=== PATIENT | female | born 1945 | race African-American/Black ===

== ENCOUNTER 2019-02-17 13:12 | Inpatient (IN) | payer MEDICARE, MEDICAID ==
[~2019-02-17 13:12] MED LIST: ISOVUE-370 76%-LOCM 1 ML ONE
[2019-02-17 13:29] LABS: Hemoglobin 12.4 g/dL (12.0-16.0); Mean Corpuscular HGB CONC 32.9 g/dL (32.0-36.0); Mean Corpuscular Hemoglobin 27.5 pg (27.0-31.0); Mean Corpuscular Volume 83.5 fL (78.0-98.0); Mean Platelet Volume 8.4 fL (7.4-10.4); Platelet Count 222 thou/uL (130-400); RBC Distribution Width 12.4 % (11.5-14.5); White Blood Cell (WBC) Count 5.3 thou/uL (4.8-10.8)
--- NOTE | 2019-02-17 13:31 | CT ---
CT OF HEAD NONCONTRAST: INDICATION: Altered mental status. FINDINGS: There is no acute intracranial hemorrhage, mass effect, midline shift, or ventriculomegaly. No acute fluid level of the paranasal sinuses. IMPRESSION: No acute intracranial hemorrhage or mass effect. Notification of results relayed to Dr. Curran, 1331 hours. POS: [facility]
[2019-02-17 13:34] LABS: INR-International Normal Ratio 1.1; PTT 27.7 SEC (22.9-36.1); Prothrombin Time 14.2 SEC (12.0-14.7)
[2019-02-17 13:47] LABS: Lymphocytes 34 % (21-51); MDiff Complete? YES; Monocytes 6 % (0-10); Neutrophil 60 % (42-75); Platelet Morphology Comment Appears Adequate
[2019-02-17 13:51] LABS: ALT (SGPT) 43 U/L (8-55); AST (SGOT) 44 U/L (5-34); Albumin 4.3 g/dL (3.4-4.8); Alkaline Phosphatase 67 U/L (40-150); Anion Gap 13 mmol/L (10-20); BUN (Urea Nitrogen) 14 mg/dL (9.8-20.1); Bilirubin, Total 1.1 mg/dL (0.2-1.2); Calc. Creatinine Clearance 0 mL/min (70-130); Calcium 9.5 mg/dL (7.8-10.44); Carbon Dioxide 23 mmol/L (23-31); Chloride 92 mmol/L (98-107); Estimated GFR-MDRD Greater than 90; Globulin 2.6 g/dL (2.4-3.5); Glucose 88 mg/dL (83-110); Protein, Total 6.9 g/dL (6.0-8.3); Sodium 124 mmol/L (136-145)
--- NOTE | 2019-02-17 14:03 | CT ---
CT ANGIOGRAM NECK WITH CONTRAST CT ANGIOGRAM BRAIN WITH CONTRAST: DATE: 02/17/2019 HISTORY: 73-year-old female with acute stroke: Altered mental status This stroke alert protocol report was given stat to Dr. Curran of the emergency Department at 2:0 0 PM on 02/17/2019 TECHNIQUE: After IV contrast injection, arterial bolus chasing technique scan performed from AP window to vertex of head. Coronal and sagittal 3-D MIP reconstructions. FINDINGS: Aortic arch: Ectasia and calcified plaque. Brachiocephalic: No high-grade stenosis. Right subclavian: Calcified plaque at origin causing severe focal stenosis of approximately 75% Right common carotid: Tortuous. Focal kink proximally causing moderate to severe stenosis without chu que. No other stenosis. Right internal carotid, cervical: Minimal plaque proximally. No high-grade stenosis. Right vertebral, cervical: No high-grade stenosis. Left common carotid: Normal origin from the brachiocephalic. No stenosis. Left internal carotid, cervical: Minimal plaque at origin. No high-grade stenosis. Left vertebral, cervical: No high-grade stenosis. Intracranial posterior circulation: Bilateral vertebrals, basilar, bilateral posterior cerebrals, kirit ateral superior cerebellars, and bilateral AICAs, demonstrate no high-grade stenosis. Vertebrals are codominant. Intracranial anterior circulation: Calcification of carotid siphons without high-grade stenosis. No h igh-grade stenosis, thrombosis, or occlusion of M1 segments of bilateral MCAs. A1 and A2 segments of bilateral ACAs appear normal. No P-comm or Acom identified. IMPRESSION: 1. No M1 segment middle cerebral artery thrombosis. 2. No high-grade stenosis of internal carotid arteries. 3. High-grade stenosis of origin of right subclavian artery.
[2019-02-17 14:23] LABS: Bilirubin Negative (Negative); Blood, Urine Negative (Negative); Clarity Clear (Clear); Glucose, Urine (Dipstick) Normal (Negative); Leukocyte Negative Leu/uL (Negative); Nitrite Negative (Negative); Protein, Urine (Dipstick) Negative (Neg-Trace)
[2019-02-17] MEDS ORDERED: Aspirin Chewable 81 MG TAB ONE (15:09)
[2019-02-17] MEDS: Atorvastatin Calcium 40 MG TAB PO SCH (21:23)
[2019-02-17] MEDS: Enoxaparin Sodium 40 MG/0.4 ML SYRINGE SC SCH (22:02)
--- NOTE | 2019-02-17 23:07 | HP ---
PRIMARY CARE PHYSICIAN: Dr. Smart. CHIEF COMPLAINT: Slurred speech, expressive aphasia, gait abnormality. HISTORY OF PRESENT ILLNESS: Ms. Thornton is a 73-year-old female with past medical history significant for hypertension and 1 pack per day current smoking habit, who presented to the ED today via EMS with the above complaints. The patient is unable to give me any significant history, and so history is taken from her 2 daughters and 2 sisters, who are at the bedside. The patient's daughter reports that her symptoms initially began as early as yesterday morning, when her daughter noticed that her mother's speech "wasn't quite right." She noticed some speech slurring and thought that her mother seemed to be more confused than normal. The daughter had also noted some abnormality in her gait that she cannot quite explain fully, but the patient has known history of degenerative disk disease in her back and has occasionally had issues walking because of this. In any case, the patient needed help to go to bed last night, and her daughter helped her into the bed at 09:00 p.m. This morning, per family members, the patient's speech was unintelligible, and she was not answering questions appropriately. The patient's family did not notice any specific facial droop or focal weaknesses. Symptoms continued throughout the morning and around 01:00 p.m. this afternoon, the patient's second daughter arrived at the house and EMS was called to take the patient here to the emergency department. On arrival to the emergency department, CT of the brain showed no acute intracranial abnormality. She also had a CTA done, which showed no stenosis in the [place] or internal carotid arteries, although the patient did have a 75% high-grade stenosis at the origin of the right subclavian artery. Initial EKG on arrival was thought to read atrial fibrillation, however, upon closer scrutiny, P waves are evident. When the patient arrived to the floor, she was also in sinus rhythm with PACs. The patient was given aspirin in the emergency department. Unfortunately, she was outside of the tPA window. At the bedside, I cannot discern any intelligible speech from her, although she is following some commands. REVIEW OF SYSTEMS: A 12-point review of systems was performed with the daughters at bedside. Their mother has not had any specific complaints of illness, fevers, or other problems that they knew of. She was in her usual state of health up until Wednesday. ALLERGIES: NO KNOWN DRUG ALLERGIES. HOME MEDICATIONS: 1. Alprazolam 0.25 mg tab, 0.5 mg orally daily. 2. Prozac 20 mg at bedtime. 3. Hydrochlorothiazide 25 mg daily. 4. Lisinopril 40 mg orally daily. 5. Prempro 0.3/1.5 mg orally daily. 6. Tramadol 50 mg p.o. q.6 hours p.r.n. PAST MEDICAL HISTORY: This is taken from the patient's family, who is at bedside. 1. Chronic low back pain secondary to degenerative disk disease. 2. Hypertension. 3. Anxiety and depression. PAST SURGICAL HISTORY: Cholecystectomy. SOCIAL HISTORY: The patient smokes 1 pack per day of cigarettes and has so for the past 30 years. She lives independently. No alcohol use or illicit drug use. FAMILY HISTORY: Her daughter had some type of renal carcinoma. Her mother had dementia as well as colon cancer. PHYSICAL EXAMINATION: VITAL SIGNS: Blood pressure 152/86, pulse 87, O2 saturation 97% on room air, temperature 98.3. GENERAL: The patient is an female, who appears her stated age, lying and resting comfortably in bed. HEENT: Head is atraumatic, normocephalic. Mucous membranes are moist. NECK: Trachea is midline. No JVD. CV: S1 and S2. Rate is regular, rhythm is regular with occasional ectopy. No murmurs, rubs, or gallops. LUNGS: Regular respiratory rate and pattern. Coarse breath sounds throughout. ABDOMEN: Positive bowel sounds. Soft, nontender. EXTREMITIES: No edema. NEUROLOGIC: The patient is able to follow only some commands. My physical exam reveals an NIH score of approximately 13. She has some left upper extremity weakness. She has expressive aphasia and speech difficulties. LABORATORY DATA: White blood cell count 5.3, hemoglobin 12.4, hematocrit 37.6, platelet count is 222. Sodium 124, potassium 4.0, chloride 92, GFR is 90, glucose was 88. AST 44, ALT 43, alkaline phosphatase 67. Troponin is negative. Urinalysis is negative for infection. ASSESSMENT: 1. Dysarthria/expressive aphasia and left-sided weakness, strongly suspect subacute cerebrovascular accident, unfortunately outside of tPA window. 2. Right subclavian artery stenosis per CTA today, no occlusive disease in carotids or [place]. 3. Tobacco abuse with 1 pack per day current history, strongly suspect undiagnosed chronic obstructive pulmonary disease as well. 4. Hypertension. 5. Anxiety/depression. 6. Chronic low back pain secondary to degenerative joint disease. PLAN: At this time, we will admit the patient to the stroke unit. Continue telemetry monitoring. We will need to consult the Stroke Team as well as Neurology. MRI of the brain is pending. N.p.o. until we can fully assess for dysphagia. Lipid profile in the morning. PT, OT consults as well. DVT and GI prophylaxis have been ordered. We will continue aspirin and statin. Further recommendations based on hospital course. Job ID: [id number]
[2019-02-18] MEDS ORDERED: Aspirin 81 mg Enteric Coated Tablet PO SCH (09:00)
[2019-02-18] MEDS ORDERED: Prevnar 13-Val Conj/PF 0.5 ML SYRINGE IM ONE (09:00)
[2019-02-18 10:40] LABS: Anion Gap 16 mmol/L (10-20); BUN (Urea Nitrogen) 16 mg/dL (9.8-20.1); Calc. Creatinine Clearance 80 mL/min (70-130); Calcium 9.5 mg/dL (7.8-10.44); Carbon Dioxide 19 mmol/L (23-31); Chloride 95 mmol/L (98-107); Estimated GFR-MDRD Greater than 90; Glucose 97 mg/dL (83-110); Potassium 3.9 mmol/L (3.5-5.1); Sodium 126 mmol/L (136-145)
[2019-02-18] MEDS ORDERED: Aspirin 300 MG Suppository PR SCH (10:45)
[2019-02-18] MEDS ORDERED: Lorazepam 2 MG/ML VIAL SLOW IVP SCH (10:45)
--- NOTE | 2019-02-18 10:48 | PDOC.HOSPP ---
- Subjective Encounter Date: 02/18/19 Encounter Time: 10:46 non-verbal Subjective: 73 y/o female with HTN and tobacco abuse disorder admitted with acute onset of aphasia and gait instability. CT head was non diagnostic. MRI is planned. - Objective Vital Signs & Weight: Vital Signs (12 hours) Temp Pulse Resp BP Pulse Ox 02/18/19 08:00 98.7 F 100 17 150/78 H 97 02/18/19 04:00 98.5 F 95 18 158/74 H 95 02/18/19 00:00 98.3 F 100 16 159/85 H 97 Weight Weight 148 lb Result Diagrams: 02/17/19 13:18 02/18/19 10:07 Additional Labs: Accuchecks 02/17/19 13:19 POC Glucose 104 Hospitalist ROS - Medication Medications: Active Medications Generic Name Dose Route Start Last Admin Trade Name Freq PRN Reason Stop Dose Admin Aspirin 81 mg 02/18/19 09:00 02/18/19 09:45 Ecotrin PO Not Given DAILY [facility] Atorvastatin Calcium 40 mg 02/17/19 21:00 02/17/19 21:23 Lipitor PO Not Given HS [facility] Enoxaparin Sodium 40 mg 02/17/19 21:00 02/17/19 22:02 Lovenox SC 40 mg 2100 [facility] Administration - Exam General Appearance: awake alert Eye: anicteric sclera ENT: normocephalic atraumatic, moist mucosa Neck: supple, symmetric Heart: RRR, no murmur Respiratory: CTAB, no rales, no ronchi, normal chest expansion Gastrointestinal: soft, non-tender, non-distended, normal bowel sounds Extremities: no cyanosis, no edema Neurological: cranial nerve grossly intact, no focal deficits Neurological - other findings: expressive and expressive aphasia noted, agitated. Moving all limbs Hosp A/P (1) Acute CVA (cerebrovascular accident) Code(s): I63.9 - CEREBRAL INFARCTION, UNSPECIFIED Status: Acute (2) Aphasia Code(s): R47.01 - APHASIA Status: Acute (3) Gait abnormality Code(s): R26.9 - UNSPECIFIED ABNORMALITIES OF GAIT AND MOBILITY Status: Acute (4) Dysphagia Code(s): R13.10 - DYSPHAGIA, UNSPECIFIED Status: Acute (5) HTN (hypertension) Code(s): I10 - ESSENTIAL (PRIMARY) HYPERTENSION Status: Acute (6) Tobacco abuse Code(s): Z72.0 - TOBACCO USE Status: Acute (7) Hyponatremia Code(s): E87.1 - HYPO-OSMOLALITY AND HYPONATREMIA Status: Acute - Plan Get MRI as ordered Give ativan to facilitate MRI Get urine and urine osmolality. Change aspirin to rectally. NPO to continue. DVT prophylaxis with lovenox. care plan discussed with relatives.
--- NOTE | 2019-02-18 11:30 | CON ---
DATE OF CONSULTATION: 02/18/2019 This is Telemedicine consult, performed with nurse, Lashell. CHIEF COMPLAINT: The patient has history of sudden onset in duration of mental status. HISTORY OF PRESENT ILLNESS: The patient is normally very independent and lives at home alone, but for the last 2 days, daughter said she found her on the floor in her bedroom and she could not get out of bed and she was very confused. Therefore, she brought her to the hospital. This is a sudden change in her overall health. PAST MEDICAL HISTORY: Hypertension, chronic back pain, anxiety, and arthritis. PAST SURGICAL HISTORY: The patient had a gallbladder resection about 30 years ago. FAMILY HISTORY: She has 1 brother and 6 sisters. There is no history of CVA in her family. Mother of cancer in her 90s. Father lived to be in mid 90s as well and had heart problem. Her 53-year-old daughter has renal cell cancer, and she has another daughter and son both are healthy. The patient is unable to give any medical history. ALLERGIES: NO KNOWN DRUG ALLERGIES. MEDICATIONS: At home, she takes, 1. Alprazolam. 2. Prozac. 3. Hydrochlorothiazide. 4. Lisinopril. 5. Prempro. 6. Tramadol. REVIEW OF SYSTEMS: Unable to obtain. SOCIAL HISTORY: She smokes one pack a day and lives independently. No alcohol use, and family does support her and check on her. LABORATORY DATA: Her workup so far, white count 5.3, hemoglobin 12.4, hematocrit 37.6, platelets 222. Chemistry; sodium 126, potassium 3.9, chloride 95, bicarb 19, BUN 16, creatinine 0.66. Lipid profile is within normal limits. IMAGING STUDIES: She is pending an MRI scan, and her CT angio was reviewed and she has a blocked left right subclavian artery stenosis. There is no M1 middle cerebral artery thrombosis. No stenosis of ICAs. She is pending her MRI at this time. PHYSICAL EXAMINATION: VITAL SIGNS: Temperature 98.7, pulse 100, respiratory rate 17, blood pressure 150/78. GENERAL APPEARANCE: Well-built, well-nourished lady, who is comfortable in bed and looks around, does not follow any commands. CHEST: Clear vesicular breathing. CARDIAC: S1, S2 heard. No murmurs. ABDOMEN: Soft. NEUROLOGICAL: Higher intellectual function. She is nonverbal. Does not talk. Just moves around. Does not follow any commands. Cranial nerves, she has no facial asymmetry, difficult to assess any cranial nerves without patient cooperation. She did not open her mouth. Motor examination, she has spontaneous movement of her extremities and tone is normal. Deep tendon reflexes are 1+. Sensory cerebellar unable to examine. IMPRESSION: The patient is a 73-year-old woman, who had sudden deterioration of her health overnight and she was found down on the floor next to her bed and without being able to speak. Her current CT angio does not show any occluded major vessels other than right subclavian artery. Her examination shows a very confused patient, who does not seem to be able to follow any commands at all, and she has spontaneous movement of all her extremities. I suspect she might have had a shower of emboli. We are waiting for the MRI scan to reveal whether she had a stroke. RECOMMENDATIONS: I will follow up on the MRI scan. We will continue to follow the patient with you. Please start her on aspirin with statin for stroke prophylaxis. Job ID: [id number]
--- NOTE | 2019-02-18 15:51 | MRI ---
MRI OF BRAIN WITHOUT CONTRAST: 02/18/19 INDICATIONS: Stroke. Ventricles have normal size and position. No evidence of restricted diffusion. There is no evidence o f mass or edema. No significant white matter abnormality. An isointense rounded focus seen along the falx in the parasagittal region of the left frontal lobe i s noted. No correlate is seen on recent CT head which was performed with and without contrast. This f inding is most likely artifactual in nature. No acute abnormality seen. A small lipoma is seen in the subcutaneous tissues posterior calvarium. P osterior occipital region in the midline. IMPRESSION: No evidence of acute infarct. No evidence of intracranial abnormality. POS: OFF
[2019-02-18] MEDS ORDERED: Sodium Chloride 3% 100 ML IVPB SCH (16:15)
[2019-02-18 16:41] LABS: Medtox Reader # READER 4
[2019-02-18 16:42] LABS: Amphetamine Not Detected (NotDetected); Barbiturates Screen Not Detected (NotDetected); Benzodiazepine Screen Detected (NotDetected); Cocaine Metabolite Screen Not Detected (NotDetected); Medtox Control Line Valid? VALID (VALID); Methadone Not Detected (NotDetected); Methamphetamine Not Detected (NotDetected); Opiate Screen Not Detected (NotDetected); Oxycodone Screen Not Detected (NotDetected); Phencyclidine (PCP) Not Detected (NotDetected); THC/Cannabinoid Screen Not Detected (NotDetected); Tricyclic Screen Not Detected (NotDetected)
[2019-02-18] MEDS: Enoxaparin Sodium 40 MG/0.4 ML SYRINGE SC SCH (20:39)
[2019-02-18] MEDS: Atorvastatin Calcium 40 MG TAB PO SCH (20:40)
[2019-02-18 21:41] LABS: Anion Gap 16 mmol/L (10-20); BUN (Urea Nitrogen) 17 mg/dL (9.8-20.1); Calc. Creatinine Clearance 78 mL/min (70-130); Calcium 9.7 mg/dL (7.8-10.44); Carbon Dioxide 21 mmol/L (23-31); Chloride 96 mmol/L (98-107); Estimated GFR-MDRD Greater than 90; Glucose 98 mg/dL (83-110); Potassium 3.8 mmol/L (3.5-5.1); Sodium 129 mmol/L (136-145)
[2019-02-19 06:26] LABS: Anion Gap 17 mmol/L (10-20); BUN (Urea Nitrogen) 18 mg/dL (9.8-20.1); Calc. Creatinine Clearance 80 mL/min (70-130); Calcium 9.6 mg/dL (7.8-10.44); Carbon Dioxide 19 mmol/L (23-31); Chloride 97 mmol/L (98-107); Estimated GFR-MDRD Greater than 90; Glucose 102 mg/dL (83-110); Potassium 3.8 mmol/L (3.5-5.1); Sodium 129 mmol/L (136-145)
[2019-02-19] MEDS ORDERED: Aspirin 300 MG Suppository PR SCH (09:00)
--- NOTE | 2019-02-19 10:14 | PDOC.HOSPP ---
- Subjective Encounter Date: 02/19/19 Encounter Time: 10:10 Subjective: 73 y/o female with HTN and tobacco abuse disorder admitted with acute onset of aphasia and gait instability. CT and MRI on the brain were non diagnostic. More cooperative today. Recieved 100 cc of hypertonic saline yesterday with serum sodium going up to 129 from 126. On further discussion with relatives, they reportedly had taken patient to PCP gisselle evaluation due to progressive weight loss, chronic cough and some memory lapses. Patient also have chronic back pain. daughter who works in a cancer center thinks she may have cancer given her long time history of smoking and weight loss. - Objective Vital Signs & Weight: Vital Signs (12 hours) Temp Pulse Resp BP BP Pulse Ox 02/19/19 08:00 98.4 F 103 H 20 150/90 H 96 02/19/19 03:55 98.3 F 108 H 20 135/86 96 02/18/19 23:25 97.9 F 106 H 22 H 154/82 H 95 Weight Admit Weight 148 lb Weight 148 lb I&O: 02/18/19 02/19/19 02/20/19 06:59 06:59 06:59 Intake Total 100 Balance 100 Result Diagrams: 02/17/19 13:18 02/19/19 05:08 Additional Labs: Accuchecks 02/19/19 06:03 POC Glucose 110 Hospitalist ROS - Medication Medications: Active Medications Generic Name Dose Route Start Last Admin Trade Name Freq PRN Reason Stop Dose Admin Atorvastatin Calcium 40 mg 02/17/19 21:00 02/18/19 20:40 Lipitor PO Not Given HS [facility] Enoxaparin Sodium 40 mg 02/17/19 21:00 02/18/19 20:39 Lovenox SC [address] [facility] Administration - Exam General Appearance: awake alert General - other findings: cachetic Eye: anicteric sclera ENT: normocephalic atraumatic Neck: supple, no JVD Heart: RRR, no murmur Respiratory - other findings: fair air entry with transmitted sound. Gastrointestinal: soft, non-distended, normal bowel sounds Extremities: no cyanosis, no edema Neurological: cranial nerve grossly intact, no new deficit Neurological - other findings: moves all limbs but weakly Musculoskeletal: generalized weakness, diffuse muscle atrophy Psychiatric - other findings: awake but with few words. Saying Yes on few occasions Hosp A/P (1) Acute encephalopathy Code(s): G93.40 - ENCEPHALOPATHY, UNSPECIFIED Status: Acute Plan: Unclear etiology: ? Metabolic vs CVA vs Progressive dementia (2) Acute CVA (cerebrovascular accident) Code(s): I63.9 - CEREBRAL INFARCTION, UNSPECIFIED Status: Acute (3) Aphasia Code(s): R47.01 - APHASIA Status: Acute (4) Gait abnormality Code(s): R26.9 - UNSPECIFIED ABNORMALITIES OF GAIT AND MOBILITY Status: Acute (5) Dysphagia Code(s): R13.10 - DYSPHAGIA, UNSPECIFIED Status: Acute (6) HTN (hypertension) Code(s): I10 - ESSENTIAL (PRIMARY) HYPERTENSION Status: Acute (7) Tobacco abuse Code(s): Z72.0 - TOBACCO USE Status: Acute (8) Hyponatremia Code(s): E87.1 - HYPO-OSMOLALITY AND HYPONATREMIA Status: Acute (9) Protein-calorie malnutrition, severe Code(s): E43 - UNSPECIFIED SEVERE PROTEIN-CALORIE MALNUTRITION Status: Acute (10) Chronic cough Code(s): R05 - COUGH Status: Acute (11) COPD (chronic obstructive pulmonary disease) Status: Acute (12) Chronic back pain Code(s): M54.9 - DORSALGIA, UNSPECIFIED; G89.29 - OTHER CHRONIC PAIN Status: Acute (13) Lumbar spondylosis Code(s): M47.816 - SPONDYLOSIS W/O MYELOPATHY OR RADICULOPATHY, LUMBAR REGION Status: Acute (14) SIADH (syndrome of inappropriate ADH production) Status: Acute - Plan Get CT chest/abd/Pelvis. Start nicotine patch Start inhaled steroid, mucinex and bronchodilators Restart diet as permitted by speech. Discussed with Speech therapy. Start also oral supplements lidocaine patch to back. PT/OT to continue. care plan discussed with relatives. Consult palliative care Follow serum sodium and renal function
--- NOTE | 2019-02-19 10:41 | PRG ---
DATE OF TELEMEDICINE SERVICE WITH ABIMAEL ABDIEL: 02/19/2019 CHIEF COMPLAINT: Altered mental status. INTERVAL HISTORY: I spoke to Dr. Adrian as well as the patient's family, there are concerns whether she has cancer or prior dementia. She has hyponatremia. Her MRI is negative for an acute stroke at this time. LABORATORY DATA: Her sodium today is 129, potassium 3.8, chloride 97, bicarb 19 , BUN 18, and creatinine 0.66. Her MRI of the brain was completed. It was negative for any acute infarct. No evidence of any intracranial abnormality. PHYSICAL EXAMINATION: VITAL SIGNS: Blood pressure 150/90, pulse 103, and temperature 98.4. NEUROLOGIC: General appearance, well-built and well-nourished lady, who is sitting up in bed, once again not able to comprehend or follow any instructions. Family is by her side. Cranial nerves, she is unable to follow any commands. Therefore, we are unable to examine even her extraocular movements, but pupils are normal. Motor examination, unable to assess strength. The patient is unable to follow any commands. She does have spontaneous movement. IMPRESSION: The patient is a 73-year-old lady, who has significant alteration of her mental status, likely due to hyponatremia and other metabolic factors. At this time, suspicion is for possible underlying cancer or dementia. We cannot exclude dementia as a pre-existing condition in her case, but does not seem to be a vascular form based on her MRI findings. RECOMMENDATION: I discussed with the patient's family about hyponatremia and I expect slow recovery of function and cognitive improvement with this patient. Please call Neurology as needed for further review, since I will be off-call from tomorrow. Job ID: [id number] MTDD
[2019-02-19 12:12] LABS: Folate (Folic Acid) 18.3 ng/mL (7.0-31.4)
[2019-02-19] MEDS ORDERED: Aspirin 81 mg Enteric Coated Tablet PO SCH (12:15)
[2019-02-19] MEDS ORDERED: ISOVUE-370 76%-LOCM 1 ML ONE (13:02)
--- NOTE | 2019-02-19 13:28 | CT ---
CHEST CT WITH CONTRAST ABDOMEN CT WITH CONTRAST PELVIC CT WITH CONTRAST: HISTORY: Weight loss. Dysphagia. Restlessness. Uncertain etiology. CORRELATION: None. COMPARISON: None. FINDINGS: Chest CT: Mediastinum: No mass, lymphadenopathy or hematoma. Aorta: Normal caliber. No periaortic fat stranding. Heart: Normal heart size. No significant pericardial fluid. Trachea and central bronchi: Patent. Pleural spaces: No significant pleural fluid Right lung: Patchy opacities in the dependent portion of the right lung may represent atelectasis, as piration or pneumonia. Left lung:Minimal dependent atelectatic change Pneumothorax: None. Abdomen CT: Gallbladder: Surgically absent. Portal vein: Patent. Liver: Appropriate enhancement. Spleen: Appropriate enhancement. Pancreas: Appropriate enhancement. Adrenal glands: Appropriate enhancement. Lymphadenopathy: No gastrohepatic, retrocrural or periportal lymphadenopathy. Kidneys: Symmetric enhancement. Bilaterally no obstructive uropathy. Mesentery: No mass, lymphadenopathy, free air or free fluid. Alimentary canal: Limited evaluation due to the lack of oral contrast. No evidence of bowel obstructi on. Ileocecal junction is unremarkable. Normal caliber appendix. Colon is decompressed. Bowel wall thickening of the left hemicolon may be due to inadequate distention. Diverticulosis, without evidenc e of diverticulitis. Pelvis CT: Uterus and adnexal structures are unremarkable. No pelvic mass, lymphadenopathy, free air or free fluid. Unremarkable urinary bladder. Osseous structures:No lytic or blastic lesions in the osseous structures. IMPRESSION: 1. Right lower lobe atelectasis, pneumonia or aspiration. 2. Limited evaluation the alimentary canal; bowel wall thickening may be due to inadequate distention . Concern for mucosal-based pathology, colonoscopy is recommended. 3. Diverticulosis, without evidence of diverticulitis. Transcribed Date/Time: 02/19/2019 1:34 PM
--- NOTE | 2019-02-19 18:38 | CON ---
DATE OF CONSULTATION: 02/19/2019 CHIEF COMPLAINT: Confusion. HISTORY OF PRESENT ILLNESS: Ms. Thornton is a 73-year-old woman who was in her normal state of health until last . She started her daughter noted that she was walking with a different gait and becoming confused. On Wednesday, she became very confused and was taken by ambulance to the emergency room. She was found to be confused and was not oriented at all. She underwent CT and MRI of the brain to evaluate for stroke. These did not show obvious stroke. She was evaluated by Neurology and thought to have a metabolic encephalopathy, possibly related to hyponatremia. Her sodium was 124 on initial presentation and is increased to 129 today. She has had no nausea, vomiting, diarrhea, constipation, or blood in the stool. She did have a CT scan of her chest, abdomen, and pelvis showed some changes in the right lower lobe, either pneumonia, or atelectasis. There is some question of thickening of the left side of the colon, primarily due to inadequate distention. Diverticulosis was also noted. GI was consulted to evaluate the thickening of the colon wall noted by CT. The patient's family reports she just had a colonoscopy a little over year ago at [facility] by Dr. Pederson. This was reported as negative. The patient's mother had colon cancer and so, she does get routine colonoscopies performed. Back in August, the patient's daughter noted that she would start repeating herself somewhat with questions such as asking her on more than one occasion about a question about a bill, but otherwise, last week she was caring for herself, living independently, driving, watching ball games on the TV, just having no significant impairments until this sudden onset episode. PAST MEDICAL HISTORY: Hypertension, anxiety, depression, and chronic low back pain. She had an injection to her lower back a couple of months ago. PAST SURGICAL HISTORY: Cholecystectomy and colonoscopy. FAMILY HISTORY: Mother had colon cancer. Daughter possibly had kidney cancer. SOCIAL HISTORY: Smokes pack a day for 30 years. No alcohol or drugs. ALLERGIES: NO KNOWN DRUG ALLERGIES. MEDICATIONS: Prior to admission; 1. Alprazolam. 2. Prozac. 3. Hydrochlorothiazide. 4. Lisinopril. 5. Prempro. 6. Tramadol. REVIEW OF SYSTEMS: Unobtainable as the patient is not verbally communicative. PHYSICAL EXAMINATION: VITAL SIGNS: Temperature 99.9, pulse 70, and blood pressure 155/88. GENERAL: She is in no distress. She is confused, not oriented at all. Does not answer any questions. HEENT: Her eyes have no scleral icterus. Oropharynx is clear without lesions. NECK: No cervical or supraclavicular lymphadenopathy. LUNGS: Have expiratory wheezes in the right lung field. HEART: Regular rate and rhythm. ABDOMEN: Soft, nontender, and nondistended. Bowel sounds are present. EXTREMITIES: No lower extremity edema. LABORATORY DATA: Sodium is 129, up from 124 on 02/17/2019, creatinine 0.66, bilirubin 1.1, AST 44, ALT 43, alkaline phosphatase 67, and albumin 4.3. White blood cell count 5.3, hemoglobin 12.4, and platelets 222. IMPRESSION: 1. Abnormal CT scan of the abdomen showing thickening of the left colon. This is likely from non-distention. She just had a colonoscopy a year or so ago at [facility] by Dr. Pederson. I recommend obtaining that report to review to confirm this was normal. 2. Metabolic encephalopathy. She presented with hyponatremia. Possibly, this is related to her diuretics and her other medications. Primary service is also considering malignancy workup for endocrine source. I will defer this to the primary service. Hopefully, her mental status will improve as she gets further out from her last diuretic dose as hers serum sodium improves. 3. Possible aspiration pneumonitis. She has been started on levofloxacin. If her mental status fails to improve, then an NG tube or Dobbhoff tube can be placed for nutritional support. If she remains confused for a longer period of time, expected to be more of a long-term issue, then PEG tube could be placed in the future. She is not safe for swallowing now. RECOMMENDATIONS: 1. Send a release of information. I recommend obtaining the colonoscopy report from [facility] from a year or so ago. If this is negative, then no further GI workup is indicated. 2. If her mental status fails to improve over the next couple of days, then consider placing a Dobbhoff or NG tube for feeding. 3. I will sign off. Please call if GI can be of assistance. Job ID: [id number]
[2019-02-19] MEDS: Budesonide 0.5 MG/2 ML NEB INH SCH (18:58)
[2019-02-19] MEDS: Acetylcysteine 20% 200 MG/ML INH SCH (19:10)
[2019-02-19] MEDS: Atorvastatin Calcium 40 MG TAB PO SCH (20:39)
[2019-02-19] MEDS: Enoxaparin Sodium 40 MG/0.4 ML SYRINGE SC SCH (20:39)
[2019-02-19] MEDS: Lidocaine 5% Patch TD SCH (22:22)
[2019-02-19] MEDS ORDERED: Lidocaine Patch Removal 1 EACH TOP SCH (23:00)
[2019-02-20 04:15] LABS: Anion Gap 18 mmol/L (10-20); BUN (Urea Nitrogen) 22 mg/dL (9.8-20.1); Calc. Creatinine Clearance 76 mL/min (70-130); Calcium 9.8 mg/dL (7.8-10.44); Carbon Dioxide 19 mmol/L (23-31); Chloride 99 mmol/L (98-107); Estimated GFR-MDRD Greater than 90; Glucose 122 mg/dL (83-110); Potassium 3.8 mmol/L (3.5-5.1); Sodium 132 mmol/L (136-145)
[2019-02-20] MEDS: Budesonide 0.5 MG/2 ML NEB INH SCH ×2 (06:56→19:20)
[2019-02-20] MEDS: Acetylcysteine 20% 200 MG/ML INH SCH ×2 (06:57→19:20)
[2019-02-20] MEDS: Nicotine 21 MG PATCH TD SCH (09:29)
[2019-02-20] MEDS: Aspirin 81 mg Enteric Coated Tablet PO SCH ×2 (09:29→09:37)
[2019-02-20 10:41] LABS: #Basophils 0.1 thou/uL (0.0-0.2); #Lymphocytes 1.9 thou/uL (1.20-3.40); #Monocytes 1.1 thou/uL (0.11-0.59); #Neutrophils 7.4 thou/uL (1.40-6.50); %Basophils 1.2 % (0.0-1.0); %Eosinophils 0.1 % (0.0-10.0); %Lymphocytes 18.2 % (21.0-51.0); %Neutrophils 70.5 % (42.0-75.0); Hemoglobin 12.9 g/dL (12.0-16.0); Mean Corpuscular HGB CONC 33.2 g/dL (32.0-36.0); Mean Corpuscular Hemoglobin 27.6 pg (27.0-31.0); Mean Corpuscular Volume 83.2 fL (78.0-98.0); Mean Platelet Volume 8.2 fL (7.4-10.4); Platelet Count 238 thou/uL (130-400); RBC Distribution Width 12.5 % (11.5-14.5); Red Blood Cell (RBC) Count 4.69 mill/uL (4.20-5.40); White Blood Cell (WBC) Count 10.5 thou/uL (4.8-10.8)
[2019-02-20] MEDS ORDERED: Lidocaine 5% Patch TD SCH (11:00)
[2019-02-20] MEDS: Lidocaine Patch Removal 1 EACH TOP SCH (11:30)
--- NOTE | 2019-02-20 13:11 | PDOC.HOSPP ---
- Subjective Encounter Date: 02/20/19 Encounter Time: 13:09 Subjective: 73 y/o female with HTN and tobacco abuse disorder admitted with acute onset of aphasia and gait instability. CT and MRI on the brain were non diagnostic. More cooperative today. Recieved 100 cc of hypertonic saline yesterday with serum sodium going up to 129 from 126. On further discussion with relatives, they reportedly had taken patient to PCP for evaluation due to progressive weight loss, chronic cough and some memory lapses. More responsive and saying few words. Having intermittent low grade fever. Still coughing. - Objective Vital Signs & Weight: Vital Signs (12 hours) Temp Pulse Resp BP Pulse Ox 02/20/19 12:33 110 H 16 94 L 02/20/19 12:00 98.4 F 107 H 20 146/87 H 94 L 02/20/19 09:30 93 L 02/20/19 08:00 97.5 F L 109 H 18 144/93 H 93 L 02/20/19 06:42 66 16 96 02/20/19 05:43 98.7 F 02/20/19 03:58 100.2 F H 101 H 24 H 161/89 H 96 Weight Admit Weight 148 lb Weight 141 lb 1.6 oz I&O: 02/19/19 02/20/19 02/21/19 06:59 06:59 06:59 Intake Total 100 175 Balance 100 175 Result Diagrams: 02/20/19 10:32 02/20/19 03:44 Hospitalist ROS - Medication Medications: Active Medications Generic Name Dose Route Start Last Admin Trade Name Freq PRN Reason Stop Dose Admin Acetylcysteine 300 mg 02/19/19 21:00 02/20/19 06:57 Acetylcysteine 20% INH Not Given BID ROMAINE Albuterol/Ipratropium 3 ml 02/19/19 15:00 02/20/19 12:33 Duoneb NEB 3 ml TID ROMAINE Administration Aspirin 81 mg 02/20/19 09:00 02/20/19 09:37 Ecotrin PO Not Given DAILY ROMAINE Atorvastatin Calcium 40 mg 02/17/19 21:00 02/19/19 20:39 Lipitor PO Not Given HS ROMAINE Budesonide 0.5 mg 02/19/19 18:30 02/20/19 06:56 Pulmicort Neb Solution INH 0.5 mg BID-RT ROMAINE Administration Enoxaparin Sodium 40 mg 02/17/19 21:00 02/19/19 20:39 Lovenox SC 40 mg 2100 ROMAINE Administration Levofloxacin 750 mg/ Device 150 mls @ 100 mls/hr 02/19/19 16:00 02/19/19 17: 16 IVPB 150 mls Q24HR ROMAINE Administration Lidocaine 1 patch 02/19/19 23:00 02/19/19 22:22 Lidoderm 5% Patch TD 1 patch 2300 ROMAINE Administration Nicotine 21 mg 02/20/19 09:00 02/20/19 09:29 Nicoderm Patch TD 21 mg DAILY ROMAINE Administration - Exam General Appearance: awake alert Eye: anicteric sclera ENT: normocephalic atraumatic Neck: supple, symmetric, no lymphadenopathy Heart: RRR Respiratory: no ronchi, normal chest expansion Respiratory - other findings: fair air entry with some scattered crackles and transmitted sound. Gastrointestinal: soft, non-tender, non-distended, normal bowel sounds Extremities: no edema Neurological: cranial nerve grossly intact Neurological - other findings: Still with aphasia and apraxia Musculoskeletal: generalized weakness, diffuse muscle atrophy Psychiatric: oriented to person Hosp A/P (1) Acute encephalopathy Code(s): G93.40 - ENCEPHALOPATHY, UNSPECIFIED Status: Acute (2) Acute CVA (cerebrovascular accident) Code(s): I63.9 - CEREBRAL INFARCTION, UNSPECIFIED Status: Acute (3) Aphasia Code(s): R47.01 - APHASIA Status: Acute (4) Gait abnormality Code(s): R26.9 - UNSPECIFIED ABNORMALITIES OF GAIT AND MOBILITY Status: Acute (5) Dysphagia Code(s): R13.10 - DYSPHAGIA, UNSPECIFIED Status: Acute (6) HTN (hypertension) Code(s): I10 - ESSENTIAL (PRIMARY) HYPERTENSION Status: Acute (7) Tobacco abuse Code(s): Z72.0 - TOBACCO USE Status: Acute (8) Hyponatremia Code(s): E87.1 - HYPO-OSMOLALITY AND HYPONATREMIA Status: Acute (9) Protein-calorie malnutrition, severe Code(s): E43 - UNSPECIFIED SEVERE PROTEIN-CALORIE MALNUTRITION Status: Acute (10) Chronic cough Code(s): R05 - COUGH Status: Acute (11) COPD (chronic obstructive pulmonary disease) Status: Acute (12) Chronic back pain Code(s): M54.9 - DORSALGIA, UNSPECIFIED; G89.29 - OTHER CHRONIC PAIN Status: Acute (13) Lumbar spondylosis Code(s): M47.816 - SPONDYLOSIS W/O MYELOPATHY OR RADICULOPATHY, LUMBAR REGION Status: Acute (14) SIADH (syndrome of inappropriate ADH production) Status: Acute (15) Fever Code(s): R50.9 - FEVER, UNSPECIFIED Status: Acute (16) Colon wall thickening Code(s): K63.9 - DISEASE OF INTESTINE, UNSPECIFIED Status: Acute (17) Dementia Code(s): F03.90 - UNSPECIFIED DEMENTIA WITHOUT BEHAVIORAL DISTURBANCE Status: Acute (18) Physical deconditioning Code(s): R53.81 - OTHER MALAISE Status: Acute - Plan Continue IV antibiotic, steroid and bronchodilators. Place feeding tube if patient refusing oral intake PT/OT to continue. Consult palliative care Follow serum sodium and renal function Get ESR, CRP, Procalcitonin, NANDO.
[2019-02-20] MEDS ORDERED: Diltiazem 125 MG in Sodium Chloride 0.9% 100 ML IVPB SCH (16:30)
[2019-02-20 17:26] LABS: Troponin I 0.042 ng/mL (< 0.028)
[2019-02-20 17:29] LABS: Anion Gap 17 mmol/L (10-20); BUN (Urea Nitrogen) 27 mg/dL (9.8-20.1); Calc. Creatinine Clearance 64 mL/min (70-130); Calcium 10.1 mg/dL (7.8-10.44); Carbon Dioxide 20 mmol/L (23-31); Chloride 100 mmol/L (98-107); Estimated GFR-MDRD 86; Glucose 149 mg/dL (83-110); Magnesium 1.9 mg/dL (1.6-2.6); Potassium 3.7 mmol/L (3.5-5.1); Sodium 133 mmol/L (136-145)
[2019-02-20] MEDS: Enoxaparin Sodium 40 MG/0.4 ML SYRINGE SC SCH (21:48)
[2019-02-20] MEDS: Atorvastatin Calcium 40 MG TAB PO SCH (21:48)
[2019-02-20] MEDS: Lidocaine 5% Patch TD SCH (22:04)
[2019-02-20 22:50] LABS: Troponin I 0.101 ng/mL (< 0.028)
[2019-02-21 04:18] LABS: Phosphorus 3.9 mg/dL (2.3-4.7)
[2019-02-21 04:21] LABS: Anion Gap 20 mmol/L (10-20); BUN (Urea Nitrogen) 31 mg/dL (9.8-20.1); Calc. Creatinine Clearance 48 mL/min (70-130); Calcium 10.1 mg/dL (7.8-10.44); Carbon Dioxide 19 mmol/L (23-31); Chloride 103 mmol/L (98-107); Estimated GFR-MDRD 62; Glucose 135 mg/dL (83-110); Potassium 4.2 mmol/L (3.5-5.1); Sodium 138 mmol/L (136-145)
[2019-02-21] MEDS: Acetylcysteine 20% 200 MG/ML INH SCH ×2 (07:04→18:41)
[2019-02-21] MEDS: Budesonide 0.5 MG/2 ML NEB INH SCH ×2 (07:05→18:40)
[2019-02-21] MEDS: Nicotine 21 MG PATCH TD SCH (10:26)
[2019-02-21] MEDS: Aspirin 81 mg Enteric Coated Tablet PO SCH (10:26)
[2019-02-21] MEDS: Lidocaine Patch Removal 1 EACH TOP SCH (10:27)
--- NOTE | 2019-02-21 18:02 | CON ---
DATE OF CONSULTATION: 02/21/2019 REASON FOR CONSULTATION: Atrial fibrillation. HISTORY OF PRESENT ILLNESS: Ms. Thornton is a very pleasant 73-year-old woman, she is brought to the hospital predominantly with the symptoms of confusion and disorientation. The patient's daughter stated she has had some confusion and disorientation just prior to this admission, but she has found her on the floor. She could not get her out of bed. Otherwise, she had been previously in better health. PAST MEDICAL HISTORY: Hypertension, back pain, anxiety, arthritis. PAST SURGICAL HISTORY: Previous gallbladder resection. FAMILY HISTORY: One brother, six sisters. Negative for heart disease as far as we know. ALLERGIES: NONE KNOWN. MEDICATIONS: At home were, 1. Alprazolam. 2. Prozac. 3. Hydrochlorothiazide. 4. Lisinopril. 5. Prempro. 6. Tramadol. REVIEW OF SYSTEMS: Not obtainable. She is still confused. SOCIAL HISTORY: She smokes 1 pack of cigarettes per day that started over a young age. No alcohol. PHYSICAL EXAMINATION: GENERAL: This is a pleasant elderly woman. She is still confused, but she is pleasant and cooperative. Family members are in the room. VITAL SIGNS: Blood pressure is 139/65, pulse is 100 and it is sinus, but occasionally she goes into atrial fibrillation. LUNGS: Clear. CARDIAC: Normal S1, normal S2. ABDOMEN: Soft, nontender. EXTREMITIES: No clubbing or cyanosis. There is no edema. SKIN: Warm and dry. PSYCHIATRIC: She is confused. She does not know where she is or the year. LABORATORY STUDIES: Troponin 0.042. IMAGING STUDIES: Echocardiogram, ejection fraction is thought to be difficult to delineate, low normal is what the initial reading was. EKG, paroxysmal atrial fibrillation. ASSESSMENT: 1. Paroxysmal atrial fibrillation. 2. Confusion and disorientation. The neurologist thought that she may have "showered" causing this episode. There are no focal findings on the CT angiogram, suspect this could be related to atrial fibrillation. PLAN: 1. Anticoagulation. 2. We will try Multaq. If that is ineffective, could consider amiodarone. Job ID: [id number]
--- NOTE | 2019-02-21 18:09 | PDOC.HOSPP ---
- Subjective Encounter Date: 02/21/19 Encounter Time: 10:30 Subjective: Ms. Thornton was seen today in follow-up of hyponatremia, and encephalopathy. She is essentially non-verbal. No new complaints. - Objective Vital Signs & Weight: Vital Signs (12 hours) Temp Pulse Pulse Pulse Resp BP BP 02/21/19 16:09 98.5 F 103 H 20 02/21/19 12:20 102 H 16 02/21/19 12:01 98.4 F 115 H 20 02/21/19 11:44 103 H 111 H 127/77 114/70 02/21/19 08:00 02/21/19 07:29 98.3 F 104 H 22 H 02/21/19 07:02 111 H 18 BP Pulse Ox 02/21/19 16:09 139/65 94 L 02/21/19 12:20 96 02/21/19 12:01 127/77 95 02/21/19 11:44 02/21/19 08:00 93 L 02/21/19 07:29 114/69 97 02/21/19 07:02 97 Weight Admit Weight 148 lb Weight 141 lb 1.6 oz I&O: 02/20/19 02/21/19 02/22/19 06:59 06:59 06:59 Intake Total 175 340 120 Balance 175 340 120 Result Diagrams: 02/20/19 10:32 02/21/19 03:47 Hospitalist ROS - Medication Medications: Active Medications Generic Name Dose Route Start Last Admin Trade Name Freq PRN Reason Stop Dose Admin Acetylcysteine 300 mg 02/19/19 21:00 02/21/19 07:04 Acetylcysteine 20% INH 300 mg BID ROMAINE Administration Albuterol/Ipratropium 3 ml 02/19/19 15:00 02/21/19 12:20 Duoneb NEB 3 ml TID ROMAINE Administration Aspirin 81 mg 02/20/19 09:00 02/21/19 10:26 Ecotrin PO 81 mg DAILY ROMAINE Administration Atorvastatin Calcium 40 mg 02/17/19 21:00 02/20/19 21:48 Lipitor PO 40 mg HS ROMAINE Administration Budesonide 0.5 mg 02/19/19 18:30 02/21/19 07:05 Pulmicort Neb Solution INH 0.5 mg BID-RT ROMAINE Administration Diltiazem HCl 125 mg/ Sodium 125 mls @ 10 mls/hr 02/20/19 16:30 02/21/19 10: 27 Chloride IVPB 125 mls INF ROMAINE Administration Protocol 10 MG/HR Levofloxacin 750 mg/ Device 150 mls @ 100 mls/hr 02/20/19 21:00 02/20/19 21: 48 IVPB 150 mls Q24HR ROMAINE Administration Lidocaine 1 patch 02/19/19 23:00 02/20/19 22:04 Lidoderm 5% Patch TD 1 patch 2300 ROMAINE Administration Miscellaneous Medication 1 each 02/20/19 11:00 02/21/19 10:27 Lidocaine Patch Removal TOP 1 each 1100 ROMAINE Administration Nicotine 21 mg 02/20/19 09:00 02/21/19 10:26 Nicoderm Patch TD 21 mg DAILY ROMAINE Administration - Exam Eye: PERRL, anicteric sclera ENT: normocephalic atraumatic, no oropharyngeal lesions Heart: RRR, no murmur, no gallops, no rubs, normal peripheral pulses Respiratory: CTAB, no wheezes, no rales, no ronchi, normal chest expansion, no tachypnea, normal percussion Gastrointestinal: soft, non-tender, non-distended, normal bowel sounds, no palpable masses, no hepatomegaly, no splenomegaly Extremities: no cyanosis, no clubbing, no edema Neurological: cranial nerve grossly intact, no new deficit Psychiatric: flat affect Hosp A/P (1) Acute encephalopathy Code(s): G93.40 - ENCEPHALOPATHY, UNSPECIFIED Status: Acute (2) Hyponatremia Code(s): E87.1 - HYPO-OSMOLALITY AND HYPONATREMIA Status: Acute (3) Dementia Code(s): F03.90 - UNSPECIFIED DEMENTIA WITHOUT BEHAVIORAL DISTURBANCE Status: Acute (4) Atrial fibrillation Code(s): I48.91 - UNSPECIFIED ATRIAL FIBRILLATION Status: Acute (5) HTN (hypertension) Code(s): I10 - ESSENTIAL (PRIMARY) HYPERTENSION Status: Acute (6) Physical deconditioning Code(s): R53.81 - OTHER MALAISE Status: Acute - Plan * Metabolic encephalopathy due to hyponatremia- her serum sodium has improved * She may have some underlying dementia as well * Atrial fibrillation- her heart rate is stable on the Cardizem drip- Cardiology evaluation noted- she will be started on Multaq * HTN- blood pressure is stable * Plan is for jail placement once ready for discharge
[2019-02-21] MEDS: Atorvastatin Calcium 40 MG TAB PO SCH (21:47)
[2019-02-21] MEDS: Enoxaparin Sodium 60 MG/0.6 ML SYRINGE SC SCH (21:48)
[2019-02-22] MEDS: Lidocaine 5% Patch TD SCH (01:55)
[2019-02-22 06:15] LABS: Anion Gap 15 mmol/L (10-20); BUN (Urea Nitrogen) 43 mg/dL (9.8-20.1); Calc. Creatinine Clearance 32 mL/min (70-130); Calcium 9.8 mg/dL (7.8-10.44); Carbon Dioxide 23 mmol/L (23-31); Chloride 103 mmol/L (98-107); Estimated GFR-MDRD 39; Glucose 108 mg/dL (83-110); Potassium 3.7 mmol/L (3.5-5.1); Sodium 137 mmol/L (136-145)
[2019-02-22] MEDS: Budesonide 0.5 MG/2 ML NEB INH SCH (07:00)
[2019-02-22 07:28] VITALS: BMI 21.5
[2019-02-22] MEDS: Acetylcysteine 20% 200 MG/ML INH SCH (08:08)
[2019-02-22] MEDS: Aspirin 81 mg Enteric Coated Tablet PO SCH (09:18)
[2019-02-22] MEDS: Nicotine 21 MG PATCH TD SCH (09:18)
[2019-02-22] MEDS: Dronedarone HCl 400 MG TAB PO SCH ×2 (09:18→16:52)
[2019-02-22] MEDS: Sodium Chloride 0.9% 1,000 ML IV SCH ×2 (09:18→20:58)
--- NOTE | 2019-02-22 10:51 | PRG ---
DATE OF SERVICE: 02/22/2019 SUBJECTIVE: Ms. Thornton does not seem to be doing as well today. Family member says she "does not feel well." She did not need much this morning and she did take the Multaq from what I can tell. OBJECTIVE: VITAL SIGNS: The patient's blood pressure 113/69, pulse is 100, and it is atrial fibrillation. LUNGS: Clear. CARDIAC: Irregularly irregular. ABDOMEN: Soft, nontender. ASSESSMENT: 1. Paroxysmal atrial fibrillation, now in fibrillation with increased rate. 2. The patient may be nauseated. It is difficult for her to say due to her previous stroke. PLAN: Continue Multaq today. If she still is having the fibrillation or did not seem to be able to tolerate Multaq, change to amiodarone. We will follow with you. Job ID: [id number]
[2019-02-22] MEDS: Lidocaine Patch Removal 1 EACH TOP SCH (11:08)
--- NOTE | 2019-02-22 11:57 | PDOC.HOSPP ---
- Subjective Encounter Date: 02/22/19 Encounter Time: 10:30 Subjective: Ms. Thornton was seen today in follow-up of metabolic encephalopathy. She is much more alert today, and a bit more appropriate. - Objective Vital Signs & Weight: Vital Signs (12 hours) Temp Pulse Resp BP BP Pulse Ox 02/22/19 07:38 98.7 F 106 H 20 113/69 02/22/19 06:59 104 H 16 98 02/22/19 03:30 99.5 F 105 H 20 117/74 96 02/21/19 23:56 101 F H 108 H 18 119/73 96 Weight Admit Weight 148 lb Weight 141 lb 11.2 oz I&O: 02/21/19 02/22/19 02/23/19 06:59 06:59 06:59 Intake Total 340 360 Output Total 150 Balance 340 210 Result Diagrams: 02/20/19 10:32 02/22/19 05:00 Hospitalist ROS - Medication Medications: Active Medications Generic Name Dose Route Start Last Admin Trade Name Freq PRN Reason Stop Dose Admin Aspirin 81 mg 02/20/19 09:00 02/22/19 09:18 Ecotrin PO 81 mg DAILY ROMAINE Administration Atorvastatin Calcium 40 mg 02/17/19 21:00 02/21/19 21:47 Lipitor PO Not Given HS ROMAINE Dronedarone 400 mg 02/22/19 08:00 02/22/19 09:18 Multaq PO 400 mg BID-WM ROMAINE Administration Enoxaparin Sodium 60 mg 02/21/19 21:00 02/21/19 21:48 Lovenox SC 60 mg 2100 ROMAINE Administration Levofloxacin 750 mg/ Device 150 mls @ 100 mls/hr 02/20/19 21:00 02/21/19 21: 47 IVPB 150 mls Q24HR ROMAINE Administration Sodium Chloride 1,000 mls @ 100 mls/hr 02/22/19 08:00 02/22/19 09:18 Normal Saline 0.9% IV 1,000 mls .Q10H ROMAINE Administration Lidocaine 1 patch 02/19/19 23:00 02/22/19 01:55 Lidoderm 5% Patch TD 1 patch 2300 ROMAINE Administration Miscellaneous Medication 1 each 02/20/19 11:00 02/22/19 11:08 Lidocaine Patch Removal TOP 1 each 1100 ROMAINE Administration Nicotine 21 mg 02/20/19 09:00 02/22/19 09:18 Nicoderm Patch TD 21 mg DAILY ROMAINE Administration - Exam Eye: PERRL, anicteric sclera ENT: normocephalic atraumatic, no oropharyngeal lesions Heart: no murmur, no gallops, no rubs, irregular Respiratory: CTAB, no wheezes, no rales, no ronchi, normal chest expansion, no tachypnea, normal percussion Gastrointestinal: soft, non-tender, non-distended, normal bowel sounds, no palpable masses, no hepatomegaly Extremities: no cyanosis, no clubbing, no edema Hosp A/P (1) Acute encephalopathy Code(s): G93.40 - ENCEPHALOPATHY, UNSPECIFIED Status: Acute (2) Hyponatremia Code(s): E87.1 - HYPO-OSMOLALITY AND HYPONATREMIA Status: Acute (3) Dementia Code(s): F03.90 - UNSPECIFIED DEMENTIA WITHOUT BEHAVIORAL DISTURBANCE Status: Acute (4) Atrial fibrillation Code(s): I48.91 - UNSPECIFIED ATRIAL FIBRILLATION Status: Acute (5) HTN (hypertension) Code(s): I10 - ESSENTIAL (PRIMARY) HYPERTENSION Status: Acute (6) Physical deconditioning Code(s): R53.81 - OTHER MALAISE Status: Acute (7) Acute kidney injury Code(s): N17.9 - ACUTE KIDNEY FAILURE, UNSPECIFIED Status: Acute - Plan * Metabolic encephalopathy due to hyponatremia- improving * Atrial fibrillation- She has been weaned off the Cardizem drip- plan is to start Multaq * Likely will start oral anticoagulation soon * HTN- blood pressure is stable * Acute kidney injury- likely due to reduced p.o. intake- will give a liter of fluids, and re-assess * Plan is for penitentiary placement once ready for discharge
[2019-02-22] MEDS ORDERED: Acetaminophen 325 MG TAB PO PRN (12:35)
--- NOTE | 2019-02-22 13:18 | PQF ---
CLINICAL DOCUMENTATION IMPROVEMENT CLARIFICATION FORM: ICD-10 Updated PLEASE DO AN ADDENDUM TO THE PROGRESS NOTE WITH ANY DOCUMENTATION UPDATES OR ADDITIONS AND CARRY THROUGH TO DC SUMMARY. THANK YOU. DATE: 02/22/2019; 02/23/2019 ATTN: Dr. Maddox; Dr. Adrian Please exercise your independent, professional judgment in responding to the clarification form. Clinical indicators are provided on the bottom of this form for your review Please check appropriate box(s) to clarify if the following diagnosis has been ruled in or ruled out: SIADH [ ] Ruled in diagnosis [ ] Continue to treat [ ] Resolved [ ] Ruled out diagnosis [ ] Cannot rule out diagnosis [ ] Other diagnosis [ ] Unable to determine In addition, please specify: Present on Admission (POA): [ ] Yes [ ] No [ ] Unable to determine For continuity of documentation, please document condition throughout progress notes and discharge summary. Thank You. CLINICAL INDICATORS - SIGNS / SYMPTOMS / LABS PN 02/19-02/20: Hyponatremia SIADH (syndrome of inappropriate ADH production) PN 02/21: Hyponatremia Metabolic encephalopathy due to hyponatremia - her serum sodium has improved. RISKS: PN 02/19: 73 yo with HTN. Aphasia. Protein-calorie malnutrition , severe. TREATMENT: PN 02/19: Received 100 cc of hypertonic saline yesterday Thank you, Oksana (This form is maintained as a part of the permanent medical record) 2014 [employer]. All Rights Reserved Oksana Espinal RN, BSN [email or web address] Office: [phone] [facility]
[2019-02-22 16:30] LABS: ANA Symphony (Qualitative) Negative (Negative); ANA Symphony (Quantitative) 0.1 Ratio (< 0.7 Negative); dsDNA IgG Antibody Less than 0.5 IU/mL (<10 Negative)
--- NOTE | 2019-02-22 16:42 | EKG ---
Test Reason : Blood Pressure : / mmHG Vent. Rate : 155 BPM Atrial Rate : 144 BPM P-R Int : 000 ms QRS Dur : 088 ms QT Int : 242 ms P-R-T Axes : 000 020 148 degrees QTc Int : 388 ms Atrial fibrillation with rapid ventricular response Moderate voltage criteria for LVH, may be normal variant Marked ST abnormality, possible inferior subendocardial injury Marked ST abnormality, possible anterior subendocardial injury Abnormal ECG When compared with ECG of 17-FEB-2019 14:00, (Unconfirmed) Vent. rate has increased BY [address] now depressed in Inferior leads ST now depressed in Anterolateral leads T wave inversion more evident in Lateral leads Confirmed by DR. Price CLOUD () on 02/22/2019 4:41:40 PM Referred By: [facility] Confirmed By:DR. Price CLOUD
[2019-02-22] MEDS: Atorvastatin Calcium 40 MG TAB PO SCH (20:57)
[2019-02-22] MEDS: Enoxaparin Sodium 60 MG/0.6 ML SYRINGE SC SCH (20:57)
[2019-02-23] MEDS: Lidocaine 5% Patch TD SCH (00:41)
[2019-02-23 06:45] LABS: Anion Gap 10 mmol/L (10-20); BUN (Urea Nitrogen) 40 mg/dL (9.8-20.1); Calc. Creatinine Clearance 50 mL/min (70-130); Calcium 8.8 mg/dL (7.8-10.44); Carbon Dioxide 23 mmol/L (23-31); Chloride 109 mmol/L (98-107); Estimated GFR-MDRD 64; Glucose 86 mg/dL (83-110); Potassium 3.7 mmol/L (3.5-5.1); Sodium 138 mmol/L (136-145)
--- NOTE | 2019-02-23 10:27 | PDOC.HOSPP ---
- Subjective Encounter Date: 02/23/19 Encounter Time: 10:25 Subjective: 73 y/o female with HTN and tobacco abuse disorder admitted with acute onset of aphasia and gait instability. CT and MRI on the brain were non diagnostic. More responsive and conversational with improvement of serum sodium. - Objective Vital Signs & Weight: Vital Signs (12 hours) Temp Pulse Resp BP BP Pulse Ox 02/23/19 07:16 98 F 90 20 102/66 98 02/23/19 04:00 98.3 F 87 18 108/66 97 02/22/19 23:46 98.2 F 95 18 102/59 L 98 Weight Admit Weight 148 lb Weight 141 lb 11.2 oz I&O: 02/22/19 02/23/19 02/24/19 06:59 06:59 06:59 Intake Total 360 938 Output Total 150 200 Balance 210 738 Result Diagrams: 02/20/19 10:32 02/23/19 06:04 Hospitalist ROS - Medication Medications: Active Medications Generic Name Dose Route Start Last Admin Trade Name Freq PRN Reason Stop Dose Admin Acetaminophen 650 mg 02/22/19 12:35 02/22/19 14:34 Tylenol PO 650 mg Q6H PRN Administration Headache/Fever or Pain Aspirin 81 mg 02/20/19 09:00 02/22/19 09:18 Ecotrin PO 81 mg DAILY ROMAINE Administration Atorvastatin Calcium 40 mg 02/17/19 21:00 02/22/19 20:57 Lipitor PO 40 mg HS ROMAINE Administration Dronedarone 400 mg 02/22/19 08:00 02/22/19 16:52 Multaq PO 400 mg BID-WM ROMAINE Administration Enoxaparin Sodium 60 mg 02/21/19 21:00 02/22/19 20:57 Lovenox SC 60 mg 2100 ROMAINE Administration Lidocaine 1 patch 02/19/19 23:00 02/23/19 00:41 Lidoderm 5% Patch TD 1 patch 2300 ROMAINE Administration Miscellaneous Medication 1 each 02/20/19 11:00 02/22/19 11:08 Lidocaine Patch Removal TOP 1 each 1100 ROMAINE Administration Nicotine 21 mg 02/20/19 09:00 02/22/19 09:18 Nicoderm Patch TD 21 mg DAILY ROMAINE Administration - Exam General Appearance: awake alert General - other findings: cachetic Eye: anicteric sclera ENT: normocephalic atraumatic Neck: supple Heart: irregular Respiratory - other findings: fair air entry bilaterally with left base crackles Gastrointestinal: soft, non-tender, non-distended, normal bowel sounds Extremities: no cyanosis, no edema Neurological: cranial nerve grossly intact Musculoskeletal: generalized weakness, diffuse muscle atrophy Hosp A/P (1) Acute encephalopathy Code(s): G93.40 - ENCEPHALOPATHY, UNSPECIFIED Status: Acute (2) Acute CVA (cerebrovascular accident) Code(s): I63.9 - CEREBRAL INFARCTION, UNSPECIFIED Status: Acute (3) Aphasia Code(s): R47.01 - APHASIA Status: Acute (4) Gait abnormality Code(s): R26.9 - UNSPECIFIED ABNORMALITIES OF GAIT AND MOBILITY Status: Acute (5) Dysphagia Code(s): R13.10 - DYSPHAGIA, UNSPECIFIED Status: Acute (6) HTN (hypertension) Code(s): I10 - ESSENTIAL (PRIMARY) HYPERTENSION Status: Acute (7) Tobacco abuse Code(s): Z72.0 - TOBACCO USE Status: Acute (8) Hyponatremia Code(s): E87.1 - HYPO-OSMOLALITY AND HYPONATREMIA Status: Acute (9) Protein-calorie malnutrition, severe Code(s): E43 - UNSPECIFIED SEVERE PROTEIN-CALORIE MALNUTRITION Status: Acute (10) Chronic cough Code(s): R05 - COUGH Status: Acute (11) COPD (chronic obstructive pulmonary disease) Status: Acute (12) Chronic back pain Code(s): M54.9 - DORSALGIA, UNSPECIFIED; G89.29 - OTHER CHRONIC PAIN Status: Acute (13) Lumbar spondylosis Code(s): M47.816 - SPONDYLOSIS W/O MYELOPATHY OR RADICULOPATHY, LUMBAR REGION Status: Acute (14) SIADH (syndrome of inappropriate ADH production) Status: Acute (15) Fever Code(s): R50.9 - FEVER, UNSPECIFIED Status: Acute (16) Colon wall thickening Code(s): K63.9 - DISEASE OF INTESTINE, UNSPECIFIED Status: Acute (17) Dementia Code(s): F03.90 - UNSPECIFIED DEMENTIA WITHOUT BEHAVIORAL DISTURBANCE Status: Acute (18) Physical deconditioning Code(s): R53.81 - OTHER MALAISE Status: Acute (19) Acute kidney injury Code(s): N17.9 - ACUTE KIDNEY FAILURE, UNSPECIFIED Status: Acute (20) Atrial fibrillation Code(s): I48.91 - UNSPECIFIED ATRIAL FIBRILLATION Status: Acute - Plan Change antibiotics to oral. DC IVF with resolution of FRANSISCO [place] oral intake advised Continue multaq, bronchodilators PT/OT to continue. Discharge to SNF vs acute rehab anticipated.
--- NOTE | 2019-02-23 10:54 | PDOC.EVN ---
Event Note - Event Note Event Note: Discharge summary dictated. #[id number]
[2019-02-23] MEDS: Lidocaine Patch Removal 1 EACH TOP SCH (10:56)
[2019-02-23] MEDS: Aspirin 81 mg Enteric Coated Tablet PO SCH (10:56)
[2019-02-23] MEDS: Dronedarone HCl 400 MG TAB PO SCH (10:56)
[2019-02-23] MEDS: Nicotine 21 MG PATCH TD SCH (10:56)
[2019-02-23 11:28] VITALS: TEMP 98.5
--- NOTE | 2019-02-23 11:31 | DIS ---
DATE OF ADMISSION: 02/19/2019 DATE OF DISCHARGE: 02/23/2019 PRIMARY CARE PHYSICIAN: Dr. Jorge Smart. DISCHARGE DIAGNOSES: 1. Acute metabolic encephalopathy. 2. Symptomatic hyponatremia. 3. Aphasia. 4. Gait abnormality. 5. Dysphagia. 6. Physical deconditioning. 7. Acute cerebrovascular accident ruled out. 8. Hypertension. 9. Paroxysmal atrial fibrillation. 10. Syndrome of inappropriate ADH secretion. 11. Severe protein-calorie malnutrition. 12. Chronic obstructive pulmonary disease with acute exacerbation. 13. Chronic back pain. 14. Lumbar spondylosis. 15. Intermittent fever. 16. Colonic wall thickening. 17. Dementia. 18. Tobacco abuse disorder. 19. Acute kidney injury. CONSULTS: 1. GI. 2. Neurology. 3. Cardiology. HOSPITAL COURSE: A 73-year-old female with known history of hypertension and tobacco abuse disorder, who was admitted with acute onset of aphasia and gait instability. Relatives also reported some mental status change of memory lapses. Daughter also reported that the patient has been having progressive weight loss as well as chronic cough and memory lapses, for which she has taken the patient to the PCP for further evaluation. Due to weight loss, they were concerned about cancer. Given reported history of acute aphasia and gait instability and mental status change, there was some concern about acute CVA, hence the patient was evaluated with CT scan of the brain as well as CT angio of head and neck. These were nondiagnostic. Further evaluation with MRI of the brain also was nondiagnostic. The patient on presentation was found to have sodium of 126, and she was on hydrochlorothiazide. Further urine studies showed features of syndrome of inappropriate ADH secretion. Given acute mental status change, impression of symptomatic hyponatremia with acute encephalopathy was made, and the patient was treated with hypertonic saline 100 mL with improvement in serum sodium from 126 to 129. This was associated with improvement in mental status, and mental status continued to improve with increase in serum sodium. The patient also was found to have chronic cough and some crackles with associated rhonchi, and given history of tobacco abuse, impression of COPD with acute exacerbation was made. The patient also had intermittent fever and was started on broad-spectrum antibiotics for COPD exacerbation with possible pneumonia. The patient also received physical and occupational therapy as well as speech therapy. She improved and was tolerating some oral intake. Hospital course, however, was complicated by development of paroxysmal atrial fibrillation necessitating Cardiology consult as well as acute kidney injury which resolved with IV fluid therapy. With therapy, the patient improved and was ambulating with classroom assistant and was conversational. It was felt the patient needs further restorative therapy and was [facility]. Noteworthy that given history of weight loss, the patient had CT scan of the abdomen and pelvis as well as chest and it showed colonic thickening. GI was consulted and this was felt to be due to collapsed colon and no further evaluation was recommended. DISCHARGE DISPOSITION: [facility]. DISCHARGE CONDITION: Improving and stable. DISCHARGE FOLLOWUP: 1. With PCP in 10 days. 2. With Cardiology in 2 to 3 weeks. DISCHARGE MEDICATIONS: Please see discharge med rec. Note that all psychotropic medications were discontinued due to resolving acute encephalopathy. Job ID: [id number]
[2019-02-23] MEDS: Sodium Chloride 0.9% 1,000 ML IV SCH (11:45)
[2019-02-23 11:54] VITALS: BP 113/55
[2019-02-23] MEDS ORDERED: Doxycycline 100 MG CAP PO SCH (21:00)
[2019-02-23] MEDS ORDERED: Amoxicillin/Potassium Clav 875 MG TAB PO SCH (21:00)
== END 2019-02-23 15:49 | DRG 643 ==
LOC: ERS 13:12 → 2SE 16:13 → OBSVTOIN 02-19 10:27
PROVIDERS: ADMIT Internal Medicine; ATTEND Internal Medicine
DX: E22.2 Syndrome of inappropriate secretion of antidiuretic hormone (principal); G93.41 Metabolic encephalopathy; E43 Unspecified severe protein-calorie malnutrition; J44.1 Chronic obstructive pulmonary disease with (acute) exacerbation; N17.9 Acute kidney failure, unspecified; R47.01 Aphasia; R47.81 Slurred speech; R26.9 Unspecified abnormalities of gait and mobility; I10 Essential (primary) hypertension; F17.210 Nicotine dependence, cigarettes, uncomplicated; G89.29 Other chronic pain; F41.9 Anxiety disorder, unspecified; F32.9 Major depressive disorder, single episode, unspecified; R13.10 Dysphagia, unspecified; D64.9 Anemia, unspecified; R29.810 Facial weakness; R53.81 Other malaise; I48.0 Paroxysmal atrial fibrillation; M47.896 Other spondylosis, lumbar region; R50.9 Fever, unspecified; F03.90 Unspecified dementia, unspecified severity, without behavioral disturbance, psychotic disturbance, mood disturbance, and anxiety; Z79.01 Long term (current) use of anticoagulants
CPT/HCPCS: 36415; 36416; 51701; 70450; 70496; 70498; 70551; 71260; 74177; 80048; 80053; 80061; 80306; 81003; 82306; 82607; 82746; 83605; 83735; 83930; 83935; 84100; 84145; 84300; 84443; 84484; 85025; 85610; 85652; 85730; 86038; 86140; 86225; 87070; 87205; 90471; 90670; 93005; 93010; 93306; 94640; 94760; G0009; J1650; J1956; J2060; J3490; J7131; J7620; J7626; Q9966

== ENCOUNTER 2021-03-09 13:33 | Emergency (ER) | payer MEDICARE, MEDICAID ==
[2021-03-09 14:26] LABS: #Basophils 0.2 thou/uL (0.0-0.2); #Eosinphils 0.4 thou/uL (0.0-0.7); #Lymphocytes 5.1 thou/uL (1.20-3.40); #Monocytes 0.9 thou/uL (0.11-0.59); #Neutrophils 8.4 thou/uL (1.40-6.50); %Basophils 1.5 % (0.0-1.0); %Eosinophils 2.9 % (0.0-10.0); %Lymphocytes 33.6 % (21.0-51.0); %Monocytes 6.2 % (0.0-10.0); %Neutrophils 55.8 % (42.0-75.0); Hemoglobin 11.3 g/dL (12.0-16.0); Mean Corpuscular HGB CONC 30.7 g/dL (32.0-36.0); Mean Corpuscular Hemoglobin 25.8 pg (27.0-31.0); Mean Corpuscular Volume 84.1 fL (78.0-98.0); Mean Platelet Volume 10.7 fL (7.4-10.4); Platelet Count 247 thou/uL (130-400); RBC Distribution Width 14.1 % (11.5-14.5); Red Blood Cell (RBC) Count 4.38 mill/uL (4.20-5.40); White Blood Cell (WBC) Count 15.1 thou/uL (4.8-10.8)
[2021-03-09 15:23] LABS: Albumin 3.9 g/dL (3.4-4.8)
[2021-03-09 15:24] LABS: Calcium 9.2 mg/dL (7.8-10.44); Chloride 108 mmol/L (98-107); Potassium 4.2 mmol/L (3.5-5.1); Sodium 144 mmol/L (136-145)
[2021-03-09 15:25] LABS: Globulin 2.6 g/dL (2.4-3.5); Glucose 79 mg/dL (83-110); Protein, Total 6.5 g/dL (5.8-8.1)
[2021-03-09 15:26] LABS: Anion Gap 12 mmol/L (10-20); Carbon Dioxide 28 mmol/L (23-31)
[2021-03-09 15:27] LABS: Bilirubin, Total 0.7 mg/dL (0.2-1.2)
[2021-03-09 15:28] LABS: Alkaline Phosphatase 109 U/L (40-110); Calc. Creatinine Clearance 0 mL/min (70-130)
[2021-03-09 15:29] LABS: BUN (Urea Nitrogen) 6 mg/dL (9.8-20.1)
[2021-03-09 15:30] LABS: AST (SGOT) 18 U/L (5-34)
[2021-03-09 15:31] LABS: ALT (SGPT) 17 U/L (8-55); CK (CPK) 160 U/L (29-168); Lipase 16 U/L (8-78)
[2021-03-09 16:23] LABS: SARS-CoV-2 NAA Rapid Test Not Detected (NotDetected)
== END 2021-03-09 16:50 | disposition home or self-care (01) ==
LOC: ERS 13:33
DX: R05.1 Acute cough (principal); I10 Essential (primary) hypertension; D64.9 Anemia, unspecified; M19.90 Unspecified osteoarthritis, unspecified site; F17.210 Nicotine dependence, cigarettes, uncomplicated; Z20.822 Contact with and (suspected) exposure to COVID-19
CPT/HCPCS: 71045; 80053; 82550; 83690; 84484; 85025; 93005; U0002; 36415

== ENCOUNTER 2022-05-15 19:59 | Inpatient (IN) | payer MEDICARE, MEDICAID ==
[2022-05-15 20:29] LABS: #Basophils 0.1 thou/uL (0.0-0.2); #Eosinphils 0.2 thou/uL (0.0-0.7); #Lymphocytes 2.4 thou/uL (1.20-3.40); #Monocytes 0.4 thou/uL (0.11-0.59); #Neutrophils 2.6 thou/uL (1.40-6.50); %Basophils 1.2 % (0.0-1.0); %Eosinophils 2.8 % (0.0-10.0); %Lymphocytes 43.1 % (21.0-51.0); %Monocytes 7.4 % (0.0-10.0); %Neutrophils 45.6 % (42.0-75.0); Hemoglobin 9.7 g/dL (12.0-16.0); Mean Corpuscular Hemoglobin 26.7 pg (27.0-31.0); Mean Corpuscular Volume 86.1 fl (78.0-98.0); Mean Platelet Volume 9.7 fL (7.4-10.4); Platelet Count 188 10x3/uL (130-400); RBC Distribution Width 13.6 % (11.5-14.5); Red Blood Cell (RBC) Count 3.65 mill/uL (4.20-5.40); White Blood Cell (WBC) Count 5.7 10x3/uL (4.8-10.8)
[2022-05-15 20:51] LABS: ALT (SGPT) 24 U/L (8-55); AST (SGOT) 30 U/L (5-34); Albumin 3.7 g/dL (3.4-4.8); Alkaline Phosphatase 76 U/L (40-110); Anion Gap 13 mmol/L (10-20); BUN (Urea Nitrogen) 11 mg/dL (9.8-20.1); Bilirubin, Total 0.9 mg/dL (0.2-1.2); Calc. Creatinine Clearance 0 mL/min (70-130); Calcium 8.1 mg/dL (7.8-10.44); Carbon Dioxide 23 mmol/L (23-31); Chloride 104 mmol/L (98-107); Estimated GFR 90; Globulin 2.1 g/dL (2.4-3.5); Glucose 137 mg/dL (83-110); Protein, Total 5.8 g/dL (5.8-8.1); Sodium 137 mmol/L (136-145)
[2022-05-15] MEDS ORDERED: Potassium Chloride 20 MEQ TAB ONE (21:18)
[2022-05-16 00:18] LABS: Bilirubin Negative (Negative); Blood, Urine Negative (Negative); Clarity Clear (Clear); Glucose, Urine (Dipstick) Normal (Negative); Ketone, Urine Trace mg/dL (Negative); Leukocyte Negative Leu/uL (Negative); Nitrite Negative (Negative); Protein, Urine (Dipstick) Negative (Neg-Trace); Specific Gravity, Urine 1.011 (1.002-1.036); Urobilinogen Normal mg/dL (Less than 2)
[2022-05-16] MEDS ORDERED: Acetaminophen 650 MG Suppository PR PRN (00:53)
[2022-05-16] MEDS ORDERED: Guaifenesin DM 100-10/5 ML UDCUP PO PRN (00:53)
[2022-05-16] MEDS ORDERED: Ondansetron ODT 4 MG TAB PO PRN (00:53)
[2022-05-16] MEDS ORDERED: Ondansetron PF 4 MG/2 ML Vial IVP PRN (00:53)
[2022-05-16 01:05] VITALS: BMI 27.2
[2022-05-16 01:51] LABS: Amphetamine Not Detected (NotDetected); Barbiturates Screen Not Detected (NotDetected); Benzodiazepine Screen Not Detected (NotDetected); Cocaine Metabolite Screen Not Detected (NotDetected); Methadone Not Detected (NotDetected); Methamphetamine Not Detected (NotDetected); Opiate Screen Detected (NotDetected); Oxycodone Screen Not Detected (NotDetected); Phencyclidine (PCP) Not Detected (NotDetected); THC/Cannabinoid Screen Not Detected (NotDetected); Tricyclic Screen Detected (NotDetected)
[2022-05-16] MEDS: Sodium Chloride 0.9% 1,000 ML IV SCH ×2 (02:29→23:43)
[2022-05-16 05:07] LABS: SARS-CoV-2 NAA Rapid Test DETECTED (NotDetected)
[2022-05-16 05:22] LABS: Mean Corpuscular HGB CONC 30.3 g/dL (32.0-36.0); Mean Corpuscular Hemoglobin 25.9 pg (27.0-31.0); Mean Corpuscular Volume 85.7 fl (78.0-98.0); Mean Platelet Volume 10.1 fL (7.4-10.4); Platelet Count 206 10x3/uL (130-400); RBC Distribution Width 13.5 % (11.5-14.5); Red Blood Cell (RBC) Count 3.85 mill/uL (4.20-5.40); White Blood Cell (WBC) Count 5.9 10x3/uL (4.8-10.8)
[2022-05-16 05:24] LABS: Anion Gap 12 mmol/L (10-20); BUN (Urea Nitrogen) 8 mg/dL (9.8-20.1); Calc. Creatinine Clearance 96 mL/min (70-130); Calcium 8.6 mg/dL (7.8-10.44); Carbon Dioxide 26 mmol/L (23-31); Chloride 106 mmol/L (98-107); Estimated GFR 92; Glucose 88 mg/dL (83-110); Potassium 3.6 mmol/L (3.5-5.1); Sodium 140 mmol/L (136-145)
[2022-05-16 06:10] LABS: Band 4 % (5-11); Eosinophils 1 % (0-10); Hypochromia SLIGHT = 6-15 cells (100X) (0-5/hpf); Lymphocytes 40 % (21-51); MDiff Complete? YES; Monocytes 7 % (0-10); Neutrophil 47 % (42-75); Platelet Morphology Comment Appears Adequate; Polychromasia SLIGHT = 2-3 cells (100X) (0-2/hpf)
[2022-05-16] MEDS ORDERED: Albuterol 200 PUFF (6.7GM INHALER) INH PRN (06:29)
[2022-05-16] MEDS ORDERED: Ipratropium Oral Inhaler INH PRN (06:29)
[2022-05-16] MEDS: Acetaminophen 325 MG TAB PO PRN ×2 (06:42→16:52)
[2022-05-16] MEDS ORDERED: Benzonatate 100 MG CAP PO PRN (07:38)
[2022-05-16] MEDS ORDERED: REMDESIVIR 200 MG in Sodium Chloride 0.9% 250 ML 210 ML IV SCH (09:00)
[2022-05-16] MEDS ORDERED: Potassium Chloride 20 MEQ TAB PO SCH (09:00)
[2022-05-16] MEDS ORDERED: Dexamethasone 4 mg/ml Vial SLOW IVP SCH (09:00)
[2022-05-16] MEDS: Ascorbic Acid 500 mg Chewable Tablet PO SCH (09:44)
[2022-05-16] MEDS: Zinc Sulfate 220 MG CAP PO SCH (09:45)
[2022-05-16] MEDS: Famotidine 20 MG TAB PO SCH ×2 (09:45→20:57)
[2022-05-16] MEDS: Famotidine/PF 20 mg/2ml Vial SLOW IVP SCH ×2 (09:46→20:58)
[2022-05-16] MEDS ORDERED: Mometasone/Formoterol 60 PUFF AER INH SCH (18:30)
[2022-05-16] MEDS ORDERED: Acetaminophen/Codeine 30-300mg Tablet PO PRN (19:39)
[2022-05-17] MEDS: Mometasone 100 MCG/Formoterol 5 MCG 120 PUFF INHALER INH SCH ×2 (06:30→18:26)
[2022-05-17] MEDS: Zinc Sulfate 220 MG CAP PO SCH (09:55)
[2022-05-17] MEDS: REMDESIVIR 100 MG in Sodium Chloride 0.9% 250 ML 230 ML IV SCH (09:55)
[2022-05-17] MEDS: Famotidine 20 MG TAB PO SCH ×2 (09:55→20:02)
[2022-05-17] MEDS: Ascorbic Acid 500 mg Chewable Tablet PO SCH (09:55)
[2022-05-17] MEDS: Famotidine/PF 20 mg/2ml Vial SLOW IVP SCH ×2 (09:56→20:03)
[2022-05-17] MEDS ORDERED: traMADol HCl 50 MG TAB PO PRN (14:03)
[2022-05-17] MEDS: Atorvastatin Calcium 40 MG TAB PO SCH (20:00)
[2022-05-17] MEDS ORDERED: Flecainide 50 MG TAB PO SCH (21:00)
[2022-05-17] MEDS: Sodium Chloride 0.9% 1,000 ML IV SCH (23:21)
[2022-05-18 05:48] LABS: ALT (SGPT) 20 U/L (8-55); AST (SGOT) 27 U/L (5-34); Albumin 3.5 g/dL (3.4-4.8); Alkaline Phosphatase 70 U/L (40-110); Anion Gap 11 mmol/L (10-20); BUN (Urea Nitrogen) 9 mg/dL (9.8-20.1); Bilirubin, Total 1.1 mg/dL (0.2-1.2); Calc. Creatinine Clearance 93 mL/min (70-130); Calcium 8.1 mg/dL (7.8-10.44); Carbon Dioxide 23 mmol/L (23-31); Chloride 108 mmol/L (98-107); Estimated GFR 91; Glucose 86 mg/dL (83-110); Magnesium 1.6 mg/dL (1.6-2.6); Phosphorus 3.5 mg/dL (2.3-4.7); Potassium 3.4 mmol/L (3.5-5.1); Protein, Total 5.5 g/dL (5.8-8.1); Sodium 139 mmol/L (136-145)
[2022-05-18 06:36] LABS: Hemoglobin 9.5 g/dL (12.0-16.0); MDiff Complete? YES; Mean Corpuscular HGB CONC 30.5 g/dL (32.0-36.0); Mean Corpuscular Hemoglobin 26.2 pg (27.0-31.0); Mean Corpuscular Volume 85.9 fl (78.0-98.0); Mean Platelet Volume 10.3 fL (7.4-10.4); Platelet Count 202 10x3/uL (130-400); RBC Distribution Width 13.7 % (11.5-14.5); Red Blood Cell (RBC) Count 3.64 mill/uL (4.20-5.40); White Blood Cell (WBC) Count 6.3 10x3/uL (4.8-10.8)
[2022-05-18 06:37] LABS: Band 1 % (5-11); Eosinophils 5 % (0-10); Hypochromia SLIGHT = 6-15 cells (100X) (0-5/hpf); Lymphocytes 43 % (21-51); Monocytes 6 % (0-10); Myelocyte 1 % (0-0); Neutrophil 43 % (42-75); Nucleated RBC 1 % (0); Platelet Morphology Comment Appears Adequate; Polychromasia SLIGHT = 2-3 cells (100X) (0-2/hpf)
[2022-05-18] MEDS: Ascorbic Acid 500 mg Chewable Tablet PO SCH (09:05)
[2022-05-18] MEDS: Zinc Sulfate 220 MG CAP PO SCH (09:06)
[2022-05-18] MEDS: Famotidine 20 MG TAB PO SCH ×2 (09:06→20:30)
[2022-05-18] MEDS: Famotidine/PF 20 mg/2ml Vial SLOW IVP SCH (09:07)
[2022-05-18] MEDS: REMDESIVIR 100 MG in Sodium Chloride 0.9% 250 ML 230 ML IV SCH (09:08)
[2022-05-18] MEDS: Mometasone 100 MCG/Formoterol 5 MCG 120 PUFF INHALER INH SCH ×2 (12:16→18:08)
[2022-05-18] MEDS: Atorvastatin Calcium 40 MG TAB PO SCH (20:30)
[2022-05-18] MEDS: Apixaban 5 MG TAB PO SCH (20:30)
[2022-05-18] MEDS ORDERED: Amlodipine 5 MG TAB PO SCH (21:00)
[2022-05-19] MEDS: Mometasone 100 MCG/Formoterol 5 MCG 120 PUFF INHALER INH SCH ×2 (06:47→17:53)
[2022-05-19] MEDS: Zinc Sulfate 220 MG CAP PO SCH (08:16)
[2022-05-19] MEDS: Famotidine 20 MG TAB PO SCH ×2 (08:16→20:25)
[2022-05-19] MEDS: Ascorbic Acid 500 mg Chewable Tablet PO SCH (08:16)
[2022-05-19] MEDS: Apixaban 5 MG TAB PO SCH ×2 (08:16→20:25)
[2022-05-19] MEDS: Aspirin 81 mg Enteric Coated Tablet PO SCH (08:16)
[2022-05-19] MEDS ORDERED: Spironolactone 25 MG TAB PO SCH (13:00)
[2022-05-19] MEDS ORDERED: Potassium Chloride 20 MEQ TAB PO SCH (13:00)
[2022-05-19] MEDS: Amiodarone 200 MG TAB PO SCH (20:24)
[2022-05-19] MEDS: Atorvastatin Calcium 40 MG TAB PO SCH (20:25)
[2022-05-20 05:22] LABS: Anion Gap 12 mmol/L (10-20); BUN (Urea Nitrogen) 8 mg/dL (9.8-20.1); Calc. Creatinine Clearance 101 mL/min (70-130); Calcium 8.5 mg/dL (7.8-10.44); Carbon Dioxide 22 mmol/L (23-31); Chloride 109 mmol/L (98-107); Estimated GFR 93; Glucose 96 mg/dL (83-110); Potassium 3.2 mmol/L (3.5-5.1); Sodium 140 mmol/L (136-145)
[2022-05-20] MEDS: Mometasone 100 MCG/Formoterol 5 MCG 120 PUFF INHALER INH SCH ×2 (05:57→17:36)
[2022-05-20] MEDS: Famotidine 20 MG TAB PO SCH ×2 (08:14→21:55)
[2022-05-20] MEDS: Ascorbic Acid 500 mg Chewable Tablet PO SCH (08:15)
[2022-05-20] MEDS: Apixaban 5 MG TAB PO SCH ×2 (08:15→21:54)
[2022-05-20] MEDS: Amiodarone 200 MG TAB PO SCH ×2 (08:15→21:54)
[2022-05-20] MEDS: Zinc Sulfate 220 MG CAP PO SCH (08:15)
[2022-05-20] MEDS: Aspirin 81 mg Enteric Coated Tablet PO SCH (08:15)
[2022-05-20] MEDS: Spironolactone 25 MG TAB PO SCH (08:16)
[2022-05-20] MEDS: Atorvastatin Calcium 40 MG TAB PO SCH (21:55)
[2022-05-21] MEDS: Mometasone 100 MCG/Formoterol 5 MCG 120 PUFF INHALER INH SCH (06:35)
[2022-05-21 07:46] VITALS: TEMP 97.8
[2022-05-21 09:06] LABS: Anion Gap 11 mmol/L (10-20); BUN (Urea Nitrogen) 8 mg/dL (9.8-20.1); Calc. Creatinine Clearance 95 mL/min (70-130); Calcium 8.6 mg/dL (7.8-10.44); Carbon Dioxide 20 mmol/L (23-31); Chloride 111 mmol/L (98-107); Estimated GFR 92; Glucose 100 mg/dL (83-110); Magnesium 1.8 mg/dL (1.6-2.6); Potassium 3.7 mmol/L (3.5-5.1); Sodium 138 mmol/L (136-145)
[2022-05-21] MEDS: Amiodarone 200 MG TAB PO SCH (09:40)
[2022-05-21] MEDS: Ascorbic Acid 500 mg Chewable Tablet PO SCH (09:40)
[2022-05-21] MEDS: Zinc Sulfate 220 MG CAP PO SCH (09:41)
[2022-05-21] MEDS: Apixaban 5 MG TAB PO SCH (09:41)
[2022-05-21] MEDS: Spironolactone 25 MG TAB PO SCH (09:41)
[2022-05-21] MEDS: Aspirin 81 mg Enteric Coated Tablet PO SCH (09:41)
[2022-05-21] MEDS: Famotidine 20 MG TAB PO SCH (09:41)
[2022-05-21 11:51] VITALS: BP 122/76
[2022-05-21] MEDS ORDERED: Carvedilol 3.125 MG TAB PO SCH (17:00)
== END 2022-05-21 18:00 | disposition home or self-care (01) | DRG 177 ==
LOC: ERS 19:59 → 2SW 22:48 → OBSVTOIN 05-17 16:00
PROVIDERS: ADMIT Internal Medicine; ATTEND Internal Medicine
PROC: XW033E5 Introduction of Remdesivir Anti-infective into Peripheral Vein, Percutaneous Approach, New Technology Group 5 (ICD-10-PCS; principal; 2022-05-16)
PROC: 8E0ZXY6 Isolation (ICD-10-PCS; 2022-05-16)
DX: U07.1 COVID-19 (principal); J12.82 Pneumonia due to coronavirus disease 2019; J44.1 Chronic obstructive pulmonary disease with (acute) exacerbation; I50.22 Chronic systolic (congestive) heart failure; I42.8 Other cardiomyopathies; I49.1 Atrial premature depolarization; R55 Syncope and collapse; F03.90 Unspecified dementia, unspecified severity, without behavioral disturbance, psychotic disturbance, mood disturbance, and anxiety; E87.6 Hypokalemia; E86.0 Dehydration; I48.0 Paroxysmal atrial fibrillation; I11.0 Hypertensive heart disease with heart failure; Z79.82 Long term (current) use of aspirin; Z79.51 Long term (current) use of inhaled steroids; Z79.899 Other long term (current) drug therapy; Z87.891 Personal history of nicotine dependence
CPT/HCPCS: 36415; 70450; 71045; 80048; 80053; 80306; 81003; 82533; 82728; 83735; 83880; 84100; 84145; 84484; 85025; 87086; 93005; 93306; 93880; 96374; 96376; G0378; J0248; J1100; J7050

== ENCOUNTER 2023-01-06 03:49 | Inpatient (IN) | payer MEDICARE, MEDICAID ==
[2023-01-06 04:27] LABS: #Basophils 0.1 thou/uL (0.0-0.2); #Eosinphils 0.4 thou/uL (0.0-0.7); #Monocytes 0.5 thou/uL (0.11-0.59); #Neutrophils 2.7 thou/uL (1.40-6.50); %Basophils 1.7 % (0.0-1.0); %Eosinophils 4.8 % (0.0-10.0); %Monocytes 7.5 % (0.0-10.0); %Neutrophils 36.7 % (42.0-75.0); Hemoglobin 9.2 g/dL (12.0-16.0); Mean Corpuscular HGB CONC 30.4 g/dL (32.0-36.0); Mean Corpuscular Hemoglobin 25.8 pg (27.0-31.0); Mean Corpuscular Volume 85.1 fl (78.0-98.0); Mean Platelet Volume 10.7 fL (7.4-10.4); Platelet Count 234 10x3/uL (130-400); RBC Distribution Width 15.8 % (11.5-14.5); Red Blood Cell (RBC) Count 3.56 mill/uL (4.20-5.40); White Blood Cell (WBC) Count 7.2 10x3/uL (4.8-10.8)
[2023-01-06 04:58] LABS: ALT (SGPT) 12 U/L (8-55); AST (SGOT) 14 U/L (5-34); Albumin 3.9 g/dL (3.4-4.8); Alkaline Phosphatase 58 U/L (40-110); Anion Gap 13 mmol/L (10-20); BUN (Urea Nitrogen) 9 mg/dL (9.8-20.1); Bilirubin, Total 0.5 mg/dL (0.2-1.2); Calc. Creatinine Clearance 0 mL/min (70-130); Calcium 8.7 mg/dL (7.8-10.44); Carbon Dioxide 26 mmol/L (23-31); Chloride 105 mmol/L (98-107); Estimated GFR 67; Globulin 2.1 g/dL (2.4-3.5); Glucose 90 mg/dL (83-110); Potassium 4.1 mmol/L (3.5-5.1); Sodium 140 mmol/L (136-145)
[2023-01-06] MEDS ORDERED: Acetaminophen 325 MG TAB PO PRN (07:36)
[2023-01-06] MEDS ORDERED: Ondansetron PF 4 MG/2 ML Vial IVP PRN (07:36)
[2023-01-06] MEDS ORDERED: Ondansetron ODT 4 MG TAB PO PRN (07:36)
[2023-01-06 08:50] LABS: Troponin I Less than 0.010 ng/mL (< 0.028)
[2023-01-06 11:08] VITALS: BMI 25.7
[2023-01-06 11:16] LABS: Bacteria/HPF None Seen HPF (None Seen); Bilirubin Negative (Negative); Blood, Urine Negative (Negative); Clarity Clear (Clear); Glucose, Urine (Dipstick) Normal (Negative); Ketone, Urine Negative (Negative); Leukocyte Negative Leu/uL (Negative); Nitrite Negative (Negative); Protein, Urine (Dipstick) Negative (Neg-Trace); RBC/HPF 0-3 HPF (0-3); Specific Gravity, Urine 1.005 (1.002-1.036); Squamous Epithelial 0-3 HPF (0-3); Urobilinogen Normal mg/dL (Less than 2); WBC/HPF None Seen HPF (0-3); pH, Urine 7.5 (5.0-9.0)
[2023-01-06 12:19] LABS: Troponin I Less than 0.010 ng/mL (< 0.028)
[2023-01-06] MEDS ORDERED: Melatonin 3 MG TAB PO SCH (21:45)
[2023-01-07 05:38] LABS: #Basophils 0.1 thou/uL (0.0-0.2); #Eosinphils 0.3 thou/uL (0.0-0.7); #Monocytes 0.7 thou/uL (0.11-0.59); #Neutrophils 4.9 thou/uL (1.40-6.50); %Basophils 0.9 % (0.0-1.0); %Eosinophils 2.7 % (0.0-10.0); %Lymphocytes 35.2 % (21.0-51.0); %Monocytes 7.2 % (0.0-10.0); %Neutrophils 53.8 % (42.0-75.0); Hemoglobin 8.6 g/dL (12.0-16.0); Mean Corpuscular HGB CONC 31.3 g/dL (32.0-36.0); Mean Corpuscular Hemoglobin 25.2 pg (27.0-31.0); Mean Corpuscular Volume 80.6 fl (78.0-98.0); Mean Platelet Volume 10.2 fL (7.4-10.4); Platelet Count 211 10x3/uL (130-400); RBC Distribution Width 15.7 % (11.5-14.5); Red Blood Cell (RBC) Count 3.41 mill/uL (4.20-5.40); White Blood Cell (WBC) Count 9.2 10x3/uL (4.8-10.8)
[2023-01-07 06:08] LABS: Anion Gap 14 mmol/L (10-20); BUN (Urea Nitrogen) 10 mg/dL (9.8-20.1); Calc. Creatinine Clearance 73 mL/min (70-130); Calcium 8.8 mg/dL (7.8-10.44); Carbon Dioxide 23 mmol/L (23-31); Chloride 105 mmol/L (98-107); Estimated GFR 78; Glucose 87 mg/dL (83-110); Potassium 3.9 mmol/L (3.5-5.1); Sodium 138 mmol/L (136-145)
[2023-01-07] MEDS ORDERED: Mometasone 100 MCG/Formoterol 5 MCG 120 PUFF INHALER INH PRN (08:34)
[2023-01-07] MEDS ORDERED: Albuterol 200 PUFF (6.7GM INHALER) INH PRN (08:34)
[2023-01-07] MEDS ORDERED: Benzonatate 100 MG CAP PO PRN (08:34)
[2023-01-07] MEDS ORDERED: Non-Formulary Item 1 EACH (Ipratropium 200 PUFF Inh) INH PRN (08:34)
[2023-01-07] MEDS ORDERED: Ipratropium 200 Puff Oral Inhaler INH PRN (08:46)
[2023-01-07] MEDS ORDERED: Non-Formulary Item 1 EACH (Multivitamin [Multivitamin] 1 EACH Tablet) PO SCH (09:00)
[2023-01-07] MEDS ORDERED: Non-Formulary Item 1 EACH (Lactobacillus Acidophilus [Probiotic] 1 CAPSULE Capsule) PO SCH (09:00)
[2023-01-07] MEDS ORDERED: Apixaban 5 MG TAB PO SCH (09:00)
[2023-01-07] MEDS: Sacubitril 24MG/Valsartan 26 MG TAB PO SCH ×2 (09:01→20:17)
[2023-01-07] MEDS: Multivit, Therapeutic 1 TAB PO SCH (09:01)
[2023-01-07] MEDS: Saccharomyces boulardii 250 MG CAP PO SCH (09:01)
[2023-01-07] MEDS ORDERED: QUEtiapine 25 MG TAB PO SCH (21:00)
[2023-01-07] MEDS ORDERED: Non-Formulary Item 1 EACH (Quetiapine Fumarate [Seroquel] 50 MG Tablet) PO SCH (21:00)
[2023-01-07] MEDS ORDERED: Atorvastatin Calcium 40 MG TAB PO SCH (21:00)
[2023-01-08 06:25] LABS: #Basophils 0.1 thou/uL (0.0-0.2); #Eosinphils 0.3 thou/uL (0.0-0.7); #Monocytes 0.7 thou/uL (0.11-0.59); #Neutrophils 3.6 thou/uL (1.40-6.50); %Basophils 1.1 % (0.0-1.0); %Lymphocytes 40.8 % (21.0-51.0); %Monocytes 8.5 % (0.0-10.0); %Neutrophils 45.4 % (42.0-75.0); Hemoglobin 8.5 g/dL (12.0-16.0); Mean Corpuscular HGB CONC 31.7 g/dL (32.0-36.0); Mean Corpuscular Hemoglobin 25.7 pg (27.0-31.0); Mean Platelet Volume 11.6 fL (7.4-10.4); Platelet Count 236 10x3/uL (130-400); RBC Distribution Width 15.6 % (11.5-14.5); Red Blood Cell (RBC) Count 3.31 mill/uL (4.20-5.40)
[2023-01-08 06:51] LABS: Anion Gap 12 mmol/L (10-20); BUN (Urea Nitrogen) 9 mg/dL (9.8-20.1); Calc. Creatinine Clearance 74 mL/min (70-130); Calcium 8.8 mg/dL (7.8-10.44); Carbon Dioxide 24 mmol/L (23-31); Chloride 103 mmol/L (98-107); Estimated GFR 79; Glucose 81 mg/dL (83-110); Potassium 3.7 mmol/L (3.5-5.1); Sodium 135 mmol/L (136-145)
[2023-01-08] MEDS ORDERED: Spironolactone 25 MG TAB PO SCH (08:00)
[2023-01-08] MEDS ORDERED: Amiodarone 200 MG TAB PO SCH (09:00)
[2023-01-08] MEDS ORDERED: Senokot S 8.6-50 MG TAB PO SCH (09:00)
[2023-01-08] MEDS ORDERED: Polyethylene Glycol 3350 17 GM Packet PO SCH (09:00)
[2023-01-08] MEDS: Multivit, Therapeutic 1 TAB PO SCH (10:06)
[2023-01-08] MEDS: Saccharomyces boulardii 250 MG CAP PO SCH (10:06)
[2023-01-08] MEDS: Sacubitril 24MG/Valsartan 26 MG TAB PO SCH (10:06)
[2023-01-08 11:52] VITALS: BP 144/72; TEMP 98.3
[2023-01-08] MEDS ORDERED: Apixaban 5 MG TAB PO SCH (21:00)
== END 2023-01-08 12:02 | disposition home or self-care (01) | DRG 312 ==
LOC: ERS 03:49 → ERHOLD 07:37 → 2SW 17:04 → OBSVTOIN 01-08 09:05
PROVIDERS: ADMIT Internal Medicine; ATTEND Family Medicine
DX: I95.1 Orthostatic hypotension (principal); I50.22 Chronic systolic (congestive) heart failure; I42.9 Cardiomyopathy, unspecified; R55 Syncope and collapse; I49.5 Sick sinus syndrome; D64.9 Anemia, unspecified; G89.29 Other chronic pain; I11.0 Hypertensive heart disease with heart failure; I48.0 Paroxysmal atrial fibrillation; F41.9 Anxiety disorder, unspecified; F32.A Depression, unspecified; J44.9 Chronic obstructive pulmonary disease, unspecified; W18.30XA Fall on same level, unspecified, initial encounter; Y92.002 Bathroom of unspecified non-institutional (private) residence as the place of occurrence of the external cause; Z90.49 Acquired absence of other specified parts of digestive tract; Z87.891 Personal history of nicotine dependence; Z86.73 Personal history of transient ischemic attack (TIA), and cerebral infarction without residual deficits; Z79.899 Other long term (current) drug therapy
CPT/HCPCS: 36415; 70450; 70551; 71045; 72125; 80048; 80053; 81001; 82728; 83605; 83880; 84484; 85025; 93005; 93306; 93880; 96372; G0378; J1650

== ENCOUNTER 2023-02-13 21:40 | Inpatient (IN) | payer MEDICARE, MEDICAID ==
[2023-02-13] MEDS ORDERED: Ondansetron PF 4 MG/2 ML Vial ONE (23:10)
[2023-02-13] MEDS ORDERED: Morphine 4 MG/ML VIAL ONE (23:10)
[2023-02-13 23:44] LABS: #Basophils 0.1 thou/uL (0.0-0.2); #Monocytes 0.6 thou/uL (0.11-0.59); #Neutrophils 11.2 thou/uL (1.40-6.50); %Basophils 0.4 % (0.0-1.0); %Eosinophils 0.3 % (0.0-10.0); %Lymphocytes 10.9 % (21.0-51.0); %Monocytes 4.5 % (0.0-10.0); %Neutrophils 83.2 % (42.0-75.0); Hematocrit 28.8 % (36.0-47.0); Hemoglobin 8.8 g/dL (12.0-16.0); Mean Corpuscular HGB CONC 30.6 g/dL (32.0-36.0); Mean Corpuscular Hemoglobin 25.8 pg (27.0-31.0); Mean Corpuscular Volume 84.5 fl (78.0-98.0); Platelet Count 296 10x3/uL (130-400); RBC Distribution Width 16.3 % (11.5-14.5); Red Blood Cell (RBC) Count 3.41 mill/uL (4.20-5.40); White Blood Cell (WBC) Count 13.5 10x3/uL (4.8-10.8)
[2023-02-13 23:55] LABS: INR-International Normal Ratio 1.6; Prothrombin Time 19.3 sec (12.0-14.7)
[2023-02-13 23:56] LABS: PTT 40.2 sec (22.9-36.1)
[2023-02-14 00:05] LABS: ALT (SGPT) 17 U/L (8-55); AST (SGOT) 20 U/L (5-34); Albumin 3.9 g/dL (3.4-4.8); Alkaline Phosphatase 66 U/L (40-110); Anion Gap 13 mmol/L (10-20); BUN (Urea Nitrogen) 10 mg/dL (9.8-20.1); Bilirubin, Total 0.9 mg/dL (0.2-1.2); Calc. Creatinine Clearance 0 mL/min (70-130); Carbon Dioxide 24 mmol/L (23-31); Chloride 107 mmol/L (98-107); Estimated GFR 74; Globulin 2.5 g/dL (2.4-3.5); Glucose 132 mg/dL (83-110); Potassium 3.1 mmol/L (3.5-5.1); Protein, Total 6.4 g/dL (5.8-8.1); Sodium 141 mmol/L (136-145)
[2023-02-14] MEDS ORDERED: Dextrose 5% in Water 1,000 ML IV PRN (00:57)
[2023-02-14] MEDS ORDERED: Ondansetron ODT 4 MG TAB PO PRN (00:57)
[2023-02-14] MEDS ORDERED: Ondansetron PF 4 MG/2 ML Vial IVP PRN (00:57)
[2023-02-14] MEDS ORDERED: Ipratropium/Albuterol 3 ML NEB NEB PRN (00:57)
[2023-02-14] MEDS ORDERED: Glucagon 1 MG/ML KIT IM PRN (00:57)
[2023-02-14] MEDS ORDERED: Dextrose 50% Abboject 50 ML SYRINGE SLOW IVP PRN (00:57)
[2023-02-14 00:59] VITALS: BMI 26.4
[2023-02-14] MEDS ORDERED: Acetaminophen/Codeine 30-300mg Tablet PO PRN (01:02)
[2023-02-14] MEDS: Ibuprofen 200 MG TAB PO PRN ×3 (01:16→19:42)
[2023-02-14 01:48] LABS: Magnesium 1.6 mg/dL (1.6-2.6); Phosphorus 2.6 mg/dL (2.3-4.7)
[2023-02-14] MEDS ORDERED: Magnesium 2 GM/50 ML(in water) 2 GM in Premix Bag 1 BAG IVPB SCH (03:00)
[2023-02-14] MEDS ORDERED: Potassium Phosphate 30 MMOL, Magnesium Sulfate 2 GM in Sodium Chloride 0.9% 250 ML 250 ML IVPB SCH (03:00)
[2023-02-14] MEDS: Acetaminophen 500 MG TAB PO SCH ×3 (05:23→17:58)
[2023-02-14] MEDS: Senokot S 8.6-50 MG TAB PO SCH ×2 (09:17→20:34)
[2023-02-14] MEDS: Polyethylene Glycol 3350 17 GM Packet PO SCH (09:17)
[2023-02-14] MEDS: Famotidine 20 MG TAB PO SCH ×2 (09:17→20:34)
[2023-02-14] MEDS: Cyclobenzaprine 10 MG TAB PO PRN (20:35)
[2023-02-14] MEDS: QUEtiapine 100 MG TAB PO SCH (20:35)
[2023-02-14] MEDS: Carvedilol 6.25 MG TAB PO SCH (20:36)
[2023-02-14] MEDS ORDERED: Sodium Chloride 0.9% 1,000 ML IV SCH (23:59)
[2023-02-15] MEDS ORDERED: Morphine 2 MG/ML VIAL SLOW IVP SCH (00:45)
[2023-02-15] MEDS: Acetaminophen 500 MG TAB PO SCH ×5 (00:58→23:10)
[2023-02-15 05:07] LABS: #Basophils 0.1 thou/uL (0.0-0.2); #Eosinphils 0.7 thou/uL (0.0-0.7); #Monocytes 0.5 thou/uL (0.11-0.59); #Neutrophils 5.2 thou/uL (1.40-6.50); %Basophils 1.3 % (0.0-1.0); %Eosinophils 7.6 % (0.0-10.0); %Lymphocytes 27.5 % (21.0-51.0); %Monocytes 5.2 % (0.0-10.0); Hematocrit 28.7 % (36.0-47.0); Hemoglobin 8.8 g/dL (12.0-16.0); Mean Corpuscular HGB CONC 30.7 g/dL (32.0-36.0); Mean Corpuscular Hemoglobin 25.4 pg (27.0-31.0); Mean Corpuscular Volume 82.9 fl (78.0-98.0); Mean Platelet Volume 12.2 fL (7.4-10.4); Platelet Count 260 10x3/uL (130-400); RBC Distribution Width 16.5 % (11.5-14.5); Red Blood Cell (RBC) Count 3.46 mill/uL (4.20-5.40); White Blood Cell (WBC) Count 8.9 10x3/uL (4.8-10.8)
[2023-02-15 05:34] LABS: Anion Gap 11 mmol/L (10-20); BUN (Urea Nitrogen) 8 mg/dL (9.8-20.1); Calc. Creatinine Clearance 76 mL/min (70-130); Calcium 8.9 mg/dL (7.8-10.44); Carbon Dioxide 26 mmol/L (23-31); Chloride 109 mmol/L (98-107); Estimated GFR 79; Glucose 87 mg/dL (83-110); Magnesium 2.1 mg/dL (1.6-2.6); Potassium 4.1 mmol/L (3.5-5.1); Sodium 142 mmol/L (136-145)
[2023-02-15 05:44] LABS: Phosphorus 4.3 mg/dL (2.3-4.7)
[2023-02-15] MEDS: Ibuprofen 200 MG TAB PO PRN (06:28)
[2023-02-15] MEDS: Cyclobenzaprine 10 MG TAB PO PRN (06:29)
[2023-02-15] MEDS ORDERED: CEFAZOLIN 2 GM in Sodium Chloride 0.9% 100 ML IVPB SCH (07:30)
[2023-02-15] MEDS: Carvedilol 6.25 MG TAB PO SCH ×2 (08:24→20:07)
[2023-02-15] MEDS: Amiodarone 200 MG TAB PO SCH (08:24)
[2023-02-15] MEDS: Famotidine 20 MG TAB PO SCH ×2 (08:24→20:07)
[2023-02-15] MEDS ORDERED: Fentanyl 250 MCG/5 ML VIAL ONE (13:34)
[2023-02-15] MEDS ORDERED: SUGAMMADEX SODIUM 200 MG/2 ML VIAL ONE (13:35)
[2023-02-15] MEDS: Ferrous Sulfate 325 MG TAB PO SCH (13:37)
[2023-02-15] MEDS: Polyethylene Glycol 3350 17 GM Packet PO SCH (13:38)
[2023-02-15] MEDS: Fluticasone Propionate Nasal Spray 16 gm Bottle NASAL SCH (13:38)
[2023-02-15] MEDS: Senokot S 8.6-50 MG TAB PO SCH ×2 (13:38→20:07)
[2023-02-15] MEDS: Spironolactone 25 MG TAB PO SCH (13:38)
[2023-02-15] MEDS ORDERED: Sodium Chloride 0.9% 100 ML ONE (13:44)
[2023-02-15] MEDS ORDERED: CEFAZOLIN 2 GM VIAL ONE (13:44)
[2023-02-15] MEDS ORDERED: Ondansetron PF 4 MG/2 ML Vial ONE (13:59)
[2023-02-15] MEDS ORDERED: Rocuronium Bromide 10 MG/ML (10ML VIAL) ONE (13:59)
[2023-02-15] MEDS ORDERED: Dexamethasone 20 MG/5 ML VIAL ONE (13:59)
[2023-02-15] MEDS ORDERED: PROPOFOL 200 MG/20 ML VIAL ONE (13:59)
[2023-02-15] MEDS ORDERED: fentaNYL 50 mcg/mL 1 mL Vial ONE (15:50)
[2023-02-15] MEDS ORDERED: HYDROmorphone 2 MG/ML VIAL SLOW IVP PRN (16:01)
[2023-02-15] MEDS ORDERED: Promethazine HCl 25 MG/ML VIAL IM PRN (16:01)
[2023-02-15] MEDS ORDERED: Ondansetron HCl/PF 4 MG/2 ML Vial IVP PRN (16:01)
[2023-02-15] MEDS: Ascorbic Acid 500 mg Chewable Tablet PO SCH (20:07)
[2023-02-15] MEDS: QUEtiapine 100 MG TAB PO SCH (20:07)
[2023-02-15] MEDS: CEFAZOLIN 2 GM in Sodium Chloride 0.9% 100 ML IVPB SCH (21:09)
[2023-02-16] MEDS: Acetaminophen 500 MG TAB PO SCH ×4 (05:26→23:14)
[2023-02-16] MEDS: CEFAZOLIN 2 GM in Sodium Chloride 0.9% 100 ML IVPB SCH (05:27)
[2023-02-16 06:30] LABS: #Monocytes 0.6 thou/uL (0.11-0.59); %Basophils 0.4 % (0.0-1.0); %Eosinophils 0.1 % (0.0-10.0); %Lymphocytes 10.1 % (21.0-51.0); %Monocytes 6.1 % (0.0-10.0); %Neutrophils 82.7 % (42.0-75.0); Hematocrit 29.9 % (36.0-47.0); Hemoglobin 9.4 g/dL (12.0-16.0); Mean Corpuscular HGB CONC 31.4 g/dL (32.0-36.0); Mean Corpuscular Hemoglobin 26.6 pg (27.0-31.0); Mean Corpuscular Volume 84.7 fl (78.0-98.0); Mean Platelet Volume 11.5 fL (7.4-10.4); Platelet Count 218 10x3/uL (130-400); RBC Distribution Width 16.3 % (11.5-14.5); Red Blood Cell (RBC) Count 3.53 mill/uL (4.20-5.40); White Blood Cell (WBC) Count 9.7 10x3/uL (4.8-10.8)
[2023-02-16 07:35] LABS: Anion Gap 16 mmol/L (10-20); BUN (Urea Nitrogen) 12 mg/dL (9.8-20.1); Calc. Creatinine Clearance 75 mL/min (70-130); Calcium 8.5 mg/dL (7.8-10.44); Carbon Dioxide 19 mmol/L (23-31); Chloride 108 mmol/L (98-107); Estimated GFR 78; Glucose 97 mg/dL (83-110); Potassium 4.9 mmol/L (3.5-5.1); Sodium 138 mmol/L (136-145)
[2023-02-16] MEDS: Ferrous Sulfate 325 MG TAB PO SCH ×3 (08:37→19:09)
[2023-02-16] MEDS: Carvedilol 6.25 MG TAB PO SCH ×2 (08:44→20:06)
[2023-02-16] MEDS: Spironolactone 25 MG TAB PO SCH (08:45)
[2023-02-16] MEDS: Amiodarone 200 MG TAB PO SCH (08:45)
[2023-02-16] MEDS: Polyethylene Glycol 3350 17 GM Packet PO SCH (08:46)
[2023-02-16] MEDS: Senokot S 8.6-50 MG TAB PO SCH ×2 (08:46→20:06)
[2023-02-16] MEDS: Ascorbic Acid 500 mg Chewable Tablet PO SCH ×2 (08:46→20:05)
[2023-02-16] MEDS: Apixaban 5 MG TAB PO SCH ×2 (08:54→20:06)
[2023-02-16] MEDS: Famotidine 20 MG TAB PO SCH ×2 (10:09→20:06)
[2023-02-16] MEDS: Fluticasone Propionate Nasal Spray 16 gm Bottle NASAL SCH (16:57)
[2023-02-16] MEDS: QUEtiapine 100 MG TAB PO SCH (20:06)
[2023-02-16] MEDS: Cyclobenzaprine 10 MG TAB PO PRN (20:06)
[2023-02-17] MEDS: Acetaminophen 500 MG TAB PO SCH ×3 (05:19→17:00)
[2023-02-17 05:30] LABS: #Basophils 0.1 thou/uL (0.0-0.2); #Eosinphils 0.5 thou/uL (0.0-0.7); #Monocytes 0.9 thou/uL (0.11-0.59); #Neutrophils 7.2 thou/uL (1.40-6.50); %Basophils 0.4 % (0.0-1.0); %Eosinophils 4.3 % (0.0-10.0); %Lymphocytes 22.9 % (21.0-51.0); Hemoglobin 8.1 g/dL (12.0-16.0); Mean Corpuscular HGB CONC 32.4 g/dL (32.0-36.0); Mean Corpuscular Hemoglobin 27.6 pg (27.0-31.0); Mean Platelet Volume 12.5 fL (7.4-10.4); Platelet Count 212 10x3/uL (130-400); RBC Distribution Width 16.6 % (11.5-14.5); Red Blood Cell (RBC) Count 2.94 mill/uL (4.20-5.40); White Blood Cell (WBC) Count 11.2 10x3/uL (4.8-10.8)
[2023-02-17] MEDS: Amiodarone 200 MG TAB PO SCH (10:12)
[2023-02-17] MEDS: Famotidine 20 MG TAB PO SCH ×2 (10:12→21:33)
[2023-02-17] MEDS: Apixaban 5 MG TAB PO SCH ×2 (10:12→21:33)
[2023-02-17] MEDS: Spironolactone 25 MG TAB PO SCH (10:13)
[2023-02-17] MEDS: Ascorbic Acid 500 mg Chewable Tablet PO SCH ×2 (10:13→21:33)
[2023-02-17] MEDS: Carvedilol 6.25 MG TAB PO SCH ×2 (10:13→21:33)
[2023-02-17] MEDS: Senokot S 8.6-50 MG TAB PO SCH ×2 (10:13→21:34)
[2023-02-17] MEDS: Ferrous Sulfate 325 MG TAB PO SCH ×2 (10:13→17:01)
[2023-02-17] MEDS: Polyethylene Glycol 3350 17 GM Packet PO SCH (10:14)
[2023-02-17] MEDS: Fluticasone Propionate Nasal Spray 16 gm Bottle NASAL SCH (10:14)
[2023-02-17 13:58] LABS: #Basophils 0.1 thou/uL (0.0-0.2); #Eosinphils 0.7 thou/uL (0.0-0.7); #Neutrophils 8.2 thou/uL (1.40-6.50); %Basophils 0.5 % (0.0-1.0); %Eosinophils 5.7 % (0.0-10.0); %Lymphocytes 21.5 % (21.0-51.0); %Monocytes 7.9 % (0.0-10.0); %Neutrophils 63.9 % (42.0-75.0); Hemoglobin 7.6 g/dL (12.0-16.0); Mean Corpuscular HGB CONC 31.7 g/dL (32.0-36.0); Mean Corpuscular Hemoglobin 27.2 pg (27.0-31.0); Mean Platelet Volume 10.7 fL (7.4-10.4); Platelet Count 190 10x3/uL (130-400); RBC Distribution Width 16.7 % (11.5-14.5); Red Blood Cell (RBC) Count 2.79 mill/uL (4.20-5.40); White Blood Cell (WBC) Count 12.8 10x3/uL (4.8-10.8)
[2023-02-17 16:27] LABS: #Basophils 0.1 thou/uL (0.0-0.2); #Eosinphils 0.7 thou/uL (0.0-0.7); #Monocytes 1.2 thou/uL (0.11-0.59); #Neutrophils 9.7 thou/uL (1.40-6.50); %Basophils 0.6 % (0.0-1.0); %Eosinophils 4.8 % (0.0-10.0); %Lymphocytes 19.2 % (21.0-51.0); %Neutrophils 66.9 % (42.0-75.0); Hematocrit 25.5 % (36.0-47.0); Mean Corpuscular HGB CONC 31.4 g/dL (32.0-36.0); Mean Corpuscular Hemoglobin 27.1 pg (27.0-31.0); Mean Corpuscular Volume 86.4 fl (78.0-98.0); Mean Platelet Volume 12.7 fL (7.4-10.4); Platelet Count 228 10x3/uL (130-400); RBC Distribution Width 16.7 % (11.5-14.5); Red Blood Cell (RBC) Count 2.95 mill/uL (4.20-5.40); White Blood Cell (WBC) Count 14.5 10x3/uL (4.8-10.8)
[2023-02-17] MEDS: QUEtiapine 100 MG TAB PO SCH (21:33)
[2023-02-18] MEDS: Acetaminophen 500 MG TAB PO SCH ×3 (05:04→14:52)
[2023-02-18 06:05] LABS: #Basophils 0.1 thou/uL (0.0-0.2); #Eosinphils 0.7 thou/uL (0.0-0.7); #Monocytes 1.2 thou/uL (0.11-0.59); #Neutrophils 6.2 thou/uL (1.40-6.50); %Basophils 0.7 % (0.0-1.0); %Eosinophils 6.1 % (0.0-10.0); %Lymphocytes 26.6 % (21.0-51.0); %Monocytes 10.8 % (0.0-10.0); %Neutrophils 55.4 % (42.0-75.0); Hematocrit 24.3 % (36.0-47.0); Hemoglobin 7.7 g/dL (12.0-16.0); Mean Corpuscular HGB CONC 31.7 g/dL (32.0-36.0); Mean Corpuscular Hemoglobin 27.1 pg (27.0-31.0); Mean Corpuscular Volume 85.6 fl (78.0-98.0); Mean Platelet Volume 12.2 fL (7.4-10.4); Platelet Count 203 10x3/uL (130-400); RBC Distribution Width 16.8 % (11.5-14.5); Red Blood Cell (RBC) Count 2.84 mill/uL (4.20-5.40); White Blood Cell (WBC) Count 11.3 10x3/uL (4.8-10.8)
[2023-02-18 06:24] LABS: Bacteria/HPF None Seen HPF (None Seen); Bilirubin Negative (Negative); Blood, Urine Negative (Negative); CAUTI Indications for Culture Dysuria,urgency,freq; Clarity Clear (Clear); Glucose, Urine (Dipstick) Normal (Negative); Ketone, Urine Negative (Negative); Leukocyte Negative Leu/uL (Negative); Nitrite Negative (Negative); Protein, Urine (Dipstick) Negative (Neg-Trace); RBC/HPF 0-3 HPF (0-3); Specific Gravity, Urine 1.006 (1.002-1.036); Squamous Epithelial 0-3 HPF (0-3); Urobilinogen Normal mg/dL (Less than 2); WBC/HPF 0-3 HPF (0-3)
[2023-02-18 06:27] LABS: Anion Gap 9 mmol/L (10-20); BUN (Urea Nitrogen) 11 mg/dL (9.8-20.1); Calc. Creatinine Clearance 77 mL/min (70-130); Calcium 8.5 mg/dL (7.8-10.44); Carbon Dioxide 26 mmol/L (23-31); Chloride 104 mmol/L (98-107); Estimated GFR 81; Glucose 81 mg/dL (83-110); Magnesium 1.9 mg/dL (1.6-2.6); Potassium 4.2 mmol/L (3.5-5.1); Sodium 135 mmol/L (136-145)
[2023-02-18 06:30] LABS: Urine Culture Reflex No No
[2023-02-18] MEDS: Ferrous Sulfate 325 MG TAB PO SCH ×2 (08:37→16:53)
[2023-02-18] MEDS: Carvedilol 6.25 MG TAB PO SCH (08:37)
[2023-02-18] MEDS: Apixaban 5 MG TAB PO SCH (08:37)
[2023-02-18] MEDS: Ascorbic Acid 500 mg Chewable Tablet PO SCH (08:37)
[2023-02-18] MEDS: Spironolactone 25 MG TAB PO SCH (08:37)
[2023-02-18] MEDS: Senokot S 8.6-50 MG TAB PO SCH (08:37)
[2023-02-18] MEDS: Polyethylene Glycol 3350 17 GM Packet PO SCH (08:37)
[2023-02-18] MEDS: Famotidine 20 MG TAB PO SCH (08:38)
[2023-02-18] MEDS: Fluticasone Propionate Nasal Spray 16 gm Bottle NASAL SCH (08:39)
[2023-02-18] MEDS: Amiodarone 200 MG TAB PO SCH (10:07)
[2023-02-18 16:26] VITALS: BP 138/78; TEMP 97.9
== END 2023-02-18 17:31 | DRG 481 ==
LOC: ERS 21:40 → SURG A 23:17
PROVIDERS: ADMIT Surgery; ATTEND Surgery
PROC: 0QS604Z Reposition Right Upper Femur with Internal Fixation Device, Open Approach (ICD-10-PCS; principal; 2023-02-15)
PROC: 30233N1 Transfusion of Nonautologous Red Blood Cells into Peripheral Vein, Percutaneous Approach (ICD-10-PCS; 2023-02-15)
DX: S72.141A Displaced intertrochanteric fracture of right femur, initial encounter for closed fracture (principal); D62 Acute posthemorrhagic anemia; E87.6 Hypokalemia; F03.90 Unspecified dementia, unspecified severity, without behavioral disturbance, psychotic disturbance, mood disturbance, and anxiety; I48.91 Unspecified atrial fibrillation; D64.9 Anemia, unspecified; F41.9 Anxiety disorder, unspecified; F32.A Depression, unspecified; D72.829 Elevated white blood cell count, unspecified; G89.11 Acute pain due to trauma; I10 Essential (primary) hypertension; J44.9 Chronic obstructive pulmonary disease, unspecified; Z86.73 Personal history of transient ischemic attack (TIA), and cerebral infarction without residual deficits; Z79.01 Long term (current) use of anticoagulants; Z90.49 Acquired absence of other specified parts of digestive tract; Z87.891 Personal history of nicotine dependence
CPT/HCPCS: 36415; 36430; 71045; 72170; 80048; 80053; 81001; 83735; 84100; 85025; 85610; 85730; 86850; 86900; 86901; 93005; 96374; 96375; C1713; J1100; J2270; J2272; J2405; J2704; J3010; J3475; J3490; J7050; P9016

== ENCOUNTER 2023-07-06 08:59 | Emergency (ER) | payer MEDICARE, MEDICAID ==
[2023-07-06 10:14] LABS: SARS-CoV-2 NAA Rapid Test DETECTED (NotDetected)
== END 2023-07-06 10:33 | disposition home or self-care (01) ==
LOC: ERS 08:59
DX: U07.1 COVID-19 (principal); I10 Essential (primary) hypertension
CPT/HCPCS: 99283